=== PATIENT | female | born 1940 | race Caucasian/White ===

== ENCOUNTER → 2017-03-26 | Outpatient (CLI) | payer OTHER, BC ==
[~2017-03-26] MED LIST: ACETYLCYSTEINE 10% INH; ASCA500 PO; BIOTPOW17; BROVANA INH; CALC500C3 PO; CARB200T PO; CHOND PO; CICL0.7718 TOP; CLR10 PO; GFNSR600 PO; GLUCOSAMIN PO; MULT-506 PO; OMEG10007 PO; PRLSR20 PO; Q-VAR INH; SIMV20TA2 PO; SPIR25TA PO; TIOTCAP INH; [UNRECOGNIZED DRUG - OTHER] TD
--- NOTE | 2017-03-26 11:11 | DIAGNOSTIC IMAGING REPORT ---
CHEST 2 VIEWS ROUTINE CLINICAL HISTORY: J44.9 COPD COMPARISON STUDY: 05/04/2013 FINDINGS: The cardiac and mediastinal contours remain stable. Left hemidiaphragm is obscured suggesting left lower lobe airspace consolidation. Subtle retrocardiac air bronchograms are suspected. There is blunting of both lateral costophrenic angles. Postsurgical changes involve both shoulders.[ IMPRESSION: Left lower lobe airspace opacification. In the proper clinical setting this could indicate a pneumonia. Clinical and radiographic follow-up is recommended. Electronically signed by: Marquis Byrne M.D. 03/26/2017 11:09 AM Dictated Date/Time: 03/26/2017 11:08 AM
== END | disposition home or self-care (01) ==
LOC: C.RAD1850 10:47
PROVIDERS: ATTEND Physician Assistant Medical
DX: J44.9 Chronic obstructive pulmonary disease, unspecified (principal)

== ENCOUNTER → 2017-04-04 | Outpatient (CLI) | payer OTHER, BC | END | disposition home or self-care (01) | LOC: C.LABSPEC 17:53 | PROVIDERS: ATTEND Physician Assistant Medical | DX: J47.9 Bronchiectasis, uncomplicated (principal); J18.9 Pneumonia, unspecified organism ==

== ENCOUNTER → 2017-04-04 | Outpatient (CLI) | payer OTHER, BC ==
--- NOTE | 2017-04-04 15:39 | DIAGNOSTIC IMAGING REPORT ---
CHEST 2 VIEWS ROUTINE CLINICAL HISTORY: J18.9 [id number] COMPARISON STUDY: 03/26/2017 FINDINGS: The cardiac and mediastinal contours remain stable. The left hemidiaphragm remains obscured suggesting a left lower lobe airspace opacity. There are linear opacities the right lung base, likely representing subsegmental atelectatic change.[ There is a thoracic scoliosis. Postsurgical changes involve both shoulders. IMPRESSION: 1. Persistent left basal airspace opacities possibly representing a pneumonia 2. Linear opacities in the right lung base, likely representing subsegmental atelectasis Electronically signed by: Marquis Byrne M.D. 04/04/2017 3:37 PM Dictated Date/Time: 04/04/2017 3:36 PM
== END | disposition home or self-care (01) ==
LOC: C.RAD1850 15:25
PROVIDERS: ATTEND Physician Assistant Medical
DX: J18.9 Pneumonia, unspecified organism (principal); R91.8 Other nonspecific abnormal finding of lung field; J47.9 Bronchiectasis, uncomplicated

== ENCOUNTER → 2017-07-18 | Day surgery (SDC) | payer OTHER, BC ==
[2017-07-18] VITALS (8 sets, daily range): BP systolic 103–137; BP diastolic 42–86; PULSE 52–68; TEMP 36.3–36.9; O2SAT 92–96; Ht 162.6 cm; Wt 66.0 kg
[~2017-07-18] VITALS: Ht 162.6 cm; Wt 66.0 kg
[~2017-07-18] MED LIST changes: +ACET20SO4 INH; +AMOX500C3 PO; +ATRINS NEB; +BIOT1TAB5 PO; +ENOX80IN SQ; +FENTANYL CITRATE INJ 50 MCG/1 ML 2 ML VIAL IV ONE; +FLEC50TA20 PO; +KEPPRA PO; +LEVE250T PO; +LEVO1TAB33 PO; +LIDOCAINE 4% INH SOLN 4 ML BTL TOP ONE; +LIDOCAINE HCL 2% LOCAL 50ML VIAL INSTIL ONE; +LIDOCAINE VISCOUS 2% 100ML TOP ONE; +METO25TA3 PO; +MIDAZOLAM HCL 5 MG/ML 1 ML VIAL IV ONE; +MONT1TAB5 PO; +NYSTATIN PO; +OXGN; +OXYBUTYNIN PO; +PARO1TAB27 PO; +QVRINH80 INH; +WARF-284 PO; +WARF5TAB7 PO; +cough medicine PO
--- NOTE | 2017-07-18 09:43 | History and Physical ---
History & Physical Date of Service Jul 18, 2017. History & Physical 77-year-old female patient of provider Serjio Tripp with refractory productive cough. Here for bronchoscopic evaluation and bronchial lavage. Patient has been refractory to current treatment with antibiotics as well as inhalers. Patient is to undergo conscious sedation with bronchial lavage/bronchoscopy today for further evaluation of her refractory cough. Review of Systems Constitutional: as noted in HPI. Eyes: negative. ENT: negative. Cardiovascular: as noted in HPI. Respiratory: as noted in HPI. Gastrointestinal: as noted in HPI. Genitourinary: negative. Musculoskeletal: negative. Integumentary: negative. Neurological: negative. Psychiatric: negative. Endocrine: negative. Hematologic/Lymphatic: negative. Active Problems 1. Allergic rhinitis 2. Arthritis 3. Atrial fibrillation 4. Bronchiectasis 5. Chronic interstitial cystitis 6. Depression with anxiety 7. Dyslipidemia 8. Eczema 9. Esophageal reflux 10. Hypercholesterolemia 11. Hypoxia 12. Incomplete emptying of bladder 13. Osteoarthritis of hip 14. Pneumonia (Pseudomonas aeruginosa-gentamicin resistant-11/29/08) 15. Seizure disorder (G40.909) 16. Shortness of breath on exertion (R06.02) 17. Urinary frequency (R35.0) 18. Urinary incontinence (R32) 19. Chronic obstructive pulmonary disease (496) (J44.9) Past Medical History 1. History of Adverse reaction to anesthetic agent (T41.45XA) 2. History of Gastric ulcer (K25.9) 3. History of acute bronchitis (Z87.09) 4. History of candidiasis of mouth (Z86.19) 5. History of urinary tract infection Surgical History 1. History of Bladder Surgery 2. History of Bladder Surgery 3. History of Bunion Correct W/ Metatarsal Osteotomy Green-Watermann Proc 4. History of Hysterectomy 5. History of Lung Lobectomy 6. History of Lung Lobectomy 7. History of Neuroplasty Decompression Median Nerve At Carpal Tunnel 8. History of Rectal Surgery 9. History of Shoulder Arthroplasty Total Shoulder Replacement 10. History of Sinus Surgery 11. History of Tonsillectomy With Adenoidectomy 12. History of Total Knee Arthroplasty Family History 1. Family history of Asthma 2. Family history of Breast Cancer 3. Family history of Colon Cancer 4. Family history of Heart Disease 5. Family history of Prostate Cancer 6. Family history of Tuberculosis Social History Being A Social Drinker Marital History - Currently Never smoker Retired From Work Current Meds 1. Montelukast Sodium 10 MG Oral Tablet; TAKE 1 TABLET AT BEDTIME 2. Flecainide Acetate 50 MG Oral Tablet; Take one (1) tablet(s) by mouth every 12 hours 3. Warfarin Sodium 5 MG Oral Tablet; TAKE DIRECTED 4. Ipratropium [place] 0.02 % Inhalation Solution; INHALE 1 VIAL 4 times daily 5. LevoFLOXacin 500 MG Oral Tablet; TAKE 1 TABLET DAILY DIRECTED 7. Qvar 80 MCG/ACT Inhalation Aerosol Solution; INHALE 2 PUFFS Twice daily 8. Oxybutynin Chloride ER 5 MG Oral Tablet Extended Release 24 Hour 9. Acetylcysteine 20 % Inhalation Solution; INHALE 2 ML 4 times daily 10. PARoxetine HCl - 20 MG Oral Tablet; TAKE 1 TABLET DAILY DIRECTED 11. Omeprazole 20 MG Oral Capsule Delayed Release; TAKE 1 CAPSULE DAILY 12. Benzonatate 100 MG Oral Capsule; TAKE 1 CAPSULE 3 TIMES DAILY 13. Nystatin [id number] UNIT/ML Mouth/Throat Suspension; SWISH AND SWALLOW 14. Keppra 1000 MG Oral Tablet; TAKE 1.5 TABLET daily 15. Oxybutynin Chloride ER 10 MG Oral Tablet Extended Release 24 Hour; TAKE 1 TABLET DAILY 16. Amoxicillin 500 MG Oral Capsule; TAKE 4 CAPSULES 1 HOUR PRIOR TO DENTAL 17. Claritin 10 MG Oral Tablet; TAKE 1 TABLET DAILY 18. Metoprolol Tartrate 25 MG Oral Tablet; TAKE 1/4 TABLET IN THE MORNING AND 1/ 2 19. Simvastatin 20 MG Oral Tablet; TAKE 1 TABLET DAILY; 20. Warfarin Sodium 7.5 MG Oral Tablet; Allergies 1. Albuterol AERS 2. Erythromycin Derivatives 3. Keflex TABS 4. Macrobid CAPS 5. Sulfa Drugs Immunizations Influenza --- Series1: 16-Apr-2014 PPSV --- Series1: 2005 Vital Signs Weight: 155 lb 2 oz BMI Calculated: 26.63 BSA Calculated: 1.76 Blood Pressure: 120 / 62 Respiration: 16 Temperature: 98.2 F Heart Rate: 75 O2 Saturation: 92, RA Physical Exam Constitutional General appearance: No acute distress, well appearing and well nourished. Thin elderly female in NAD. No respiratory distress. She is alert and oriented X 3. Mood and affect are good. She is able to complete sentences without difficulty. Eyes Conjunctiva and lids: No swelling, erythema or discharge. Pupils and irises: Equal, round and reactive to light. Ears, Nose, Mouth, and Throat External inspection of ears and nose: Normal. Oropharynx: Normal with no erythema, edema, exudate or lesions. Pulmonary Respiratory effort: No increased work of breathing or signs of respiratory distress. Auscultation of lungs: Abnormal. She has diminished breath sounds bilaterally. She does have somme coarse rhonchi in the lower lung areas bilaterally. Cardiovascular Palpation of heart: Normal PMI, no thrills. Auscultation of heart: Normal rate and rhythm, normal S1 and S2, without murmurs. Examination of extremities for edema and/or varicosities: Normal. Abdomen Abdomen: Non-tender, no masses. Liver and spleen: No hepatomegaly or splenomegaly. Lymphatic Palpation of lymph nodes in neck: No lymphadenopathy. Musculoskeletal Gait and station: Normal. Digits and nails: Normal without clubbing or cyanosis. Inspection/palpation of joints, bones, and muscles: Normal. Skin Skin and subcutaneous tissue: Normal without rashes or lesions. Neurologic Cranial nerves: Cranial nerves 2-12 intact. Reflexes: 2+ and symmetric. Sensation: No sensory loss. Psychiatric Orientation to person, place, and time: Normal. Mood and affect: Normal.
--- NOTE | 2017-07-18 10:12 | History & Physical Bridge Note ---
H&P Re-Evaluation Bridge Note: I have examined the patient, reviewed the History & Physical and in the interval since the performance of the History & Physical I have noted the following changes of clinical significance: No changes noted
--- NOTE | 2017-07-18 10:13 | Pre Sedation Assessment ---
Pre Sedation Assessment General Date of Sedation: Jul 18, 2017. Vital Signs Past 12 Hours Date Time Temp Pulse Resp B/P (MAP) Pulse Ox O2 Delivery O2 Flow Rate FiO2 07/18/17 09:44 36.3 55 18 137/63 (87) 93 Room Air Review Cardiovascular: regular rate, rhythm, no edema, no gallop, no JVD, no murmur, normal peripheral pulses Lungs: chest non-tender, no respiratory distress, no accessory muscle use, + rhonchi (RUL) Pre-Sedation Airway Assessment Smoking Status: Never Smoker Hx of Sleep Apnea: No Short Thick Neck: No Thyro-mental Distance: < or =3 Finger Breadths Oral Cavity: Dentures Mallampati Classification: Class I ASA Classification: Class III NPO Status Date of Last Intake of Fluids: Jul 18, 2017 Time of Last Intake of Fluids: 0001 Date of Last Intake of Solids: Jul 17, 2017 Time of Last Intake of Solids: 1999 Procedure Planning Contraindications for Sedation: None Current Medications Reviewed: Yes Notes The planned sedation has been discussed with the patient. Informed Consent was obtained. I have identified the patient, determined the appropriateness of sedation and have assessed the patient immediately prior to the procedure. All medicine(s) and interventions are by my order.
--- NOTE | 2017-07-18 10:59 | Bronchoscopy Procedure Note ---
Bronchoscopy Procedure Note Procedure: Bronchoscopy, conscious sedation, bronchial lavage lingula and right middle lobe Consent: Obtained through the patient placed into the chart Pre-procedural diagnosis: Chronic bronchiectasis with acute flare Post-procedural diagnosis: Chronic bronchiectasis with acute flare Start time: 1030 End time: 1049 Total time: 19minutes Analgesia: 2% liquid lidocaine: Via nebulizer 4% gel lidocaine: Via right naris 2% liquid lidocaine: Via bronchoscopy Sedation: Versed IV: 2mg Fentanyl IV: 50g Procedure: The Olympus video bronchoscope was used for this procedure and passed down through the oropharynx and retroflexed off the soft palate Right naris/left naris: Bilateral mild inflammation/erythema posterior naris/posterior oropharynx: Anatomically within normal limits, mild cobblestoning and erythema Glottis: Anatomically within normal limits, diffuse mucous secretions especially on the posterior commissures Vocal cords: Proper abduction and abduction, anatomically within normal limits Subglottis/trachea/Ibrahima: Anatomically within normal limits, mild mucous secretions Right bronchial tree: Right mainstem bronchus: Anatomically within normal limits Right upper lobe: Anatomically within normal limits Bronchus intermedius: Anatomically within normal limits Right middle lobe: Notable external compression along the anterior medial aspect, diffuse mucous secretions Right lower lobe: Anatomically within normal limits, diffuse mucous secretions Findings: Diffuse mucous secretions with notable abnormality at the takeoff to the right middle lobe Left bronchial tree: Left mainstem bronchus: Anatomically within normal limits Left upper lobe: Anatomically within normal limits Lingula: Notably splayed tertiary ibrahima with early takeoff to the lingula, and notable deep posterior inferior entry point to the lingula and diffuse mucous plugs Left lower lobe: Externally compress most likely consistent with previous resection unable to view resection line Findings: Notable compression most likely secondary to resection of left lower lobe along with early takeoff and posterior inferior entrance into the lingula, diffuse mucus plugging also appreciated throughout the left upper lobe and lingula Bronchial alveolar lavage: Performed at the right middle lobe as well as lingula EBL: None Complications: None Follow-up: ASU
--- NOTE | 2017-07-18 11:02 | Post Sedation Assessment ---
Post Sedation Assessment General Date of Sedation Jul 18, 2017. Vital Signs: Vital Signs Past 12 Hours Date Time Temp Pulse Resp B/P (MAP) Pulse Ox O2 Delivery O2 Flow Rate FiO2 07/18/17 10:40 60 18 132/66 100 Mask 6 07/18/17 10:35 60 18 144/61 100 Mask 6 07/18/17 10:30 52 18 147/57 100 Room Air 07/18/17 10:25 52 18 149/60 100 Room Air 07/18/17 10:20 52 18 142/53 100 Room Air 07/18/17 10:17 52 18 136/43 100 Room Air 07/18/17 09:44 36.3 55 18 137/63 (87) 93 Room Air Post Procedure Recovery Score Activity: (2) Moves 4 extremities * Respiration: (2) Deep breath/cough Circulation: (2) +/-20% PreAnes Value Consciousness: (1) Arouseable (by name) Oxygen Saturation: (2) > 92% On Room Air Discharge Sedation Level of Care: Phase I Post Sedation Plan On clinical assessment, the patient appears to have tolerated the sedation without complications. Patient is recovering as anticipated. Patient will continue to be monitored by nursing and may be discharged when sedation discharge criteria are met per below protocol. Upon Completions of procedure and additional 15 minutes continue every 5 minute vital signs and the P.A.R. score; then discharge to a Phase I or Fast Track to Phase II per the following guidelines: * Discharge Patient to appropriate Phase II area if PAR is 8 or greater or return to pre- procedure baseline. The post - procedure orders will be as directed. * If PAR score is less than 8 or not return to pre-procedure baseline then patient will follow Phase I monitoring till PAR is reached for Phase II. The Phase I may be done in procedure room or may call to secure a Phase I area. * If naloxone or flumazenil are used for reversal, hold in Phase I for an additional 60 -120 minutes before discharge to Phase II. Please call the Sedation Physician to re-evaluate and complete post-note for discharge to Phase II area. Do NOT discharge from procedure sedation or Phase 1 until post- sedation evaluation note is complete by procedure /sedation MD Sedation Discharge Instructions to be given to the patient at discharge to home.
--- NOTE | 2017-07-18 11:04 | Discharge Instructions ---
Discharge Instructions Date of Service Jul 18, 2017. Admission Reason for Admission: Copd, Bronchiectasis, Shortness Of Breath Discharge Discharge Diagnosis / Problem: chronic bronchiectasis with acute flare Discharge Goals Goal(s): Improve function, Diagnostic testing Activity Recommendations Activity Limitations: resume your previous activity . Instructions / Follow-Up Instructions / Follow-Up Follow-up with provider Serjio Tripp through the [facility] pulmonary division Current Hospital Diet Patient's current hospital diet: Discharge Diet Recommended Diet: Regular Diet Procedures Procedures Performed: Bronchoscopy with conscious sedation a bronchial lavage of the right middle lobe and lingula Pending Studies Studies pending at discharge: no Medical Emergencies . Who to Call and When: Medical Emergencies: If at any time you feel your situation is an emergency, please call 911 immediately. . Non-Emergent Contact Non-Emergency issues call your: Berry Planter . . "Provider Documentation" section prepared by Dirk Aviles. . VTE Core Measure Inpt VTE Proph given/why not?: Warfarin (Coumadin)
== END | disposition home or self-care (01) ==
LOC: C.ACU 08:43
PROVIDERS: ATTEND Internal Medicine Pulmonary Disease
DX: J47.1 Bronchiectasis with (acute) exacerbation (principal); J44.9 Chronic obstructive pulmonary disease, unspecified; J30.9 Allergic rhinitis, unspecified; M19.90 Unspecified osteoarthritis, unspecified site; I48.91 Unspecified atrial fibrillation; N30.10 Interstitial cystitis (chronic) without hematuria; E78.5 Hyperlipidemia, unspecified; G40.909 Epilepsy, unspecified, not intractable, without status epilepticus; K21.9 Gastro-esophageal reflux disease without esophagitis; E78.00 Pure hypercholesterolemia, unspecified; R33.9 Retention of urine, unspecified; M16.10 Unilateral primary osteoarthritis, unspecified hip; Z87.01 Personal history of pneumonia (recurrent); Z87.440 Personal history of urinary (tract) infections; Z96.649 Presence of unspecified artificial hip joint; Z96.659 Presence of unspecified artificial knee joint; Z79.01 Long term (current) use of anticoagulants; Z80.3 Family history of malignant neoplasm of breast; Z80.0 Family history of malignant neoplasm of digestive organs; Z82.49 Family history of ischemic heart disease and other diseases of the circulatory system; Z80.42 Family history of malignant neoplasm of prostate

== ENCOUNTER 2017-08-12 12:33 | Day surgery (SDC) | payer OTHER, BC ==
[~2017-08-12] VITALS: Ht 162.6 cm; Wt 68.4 kg
[~2017-08-12 12:33] MED LIST changes: -ACETYLCYSTEINE 10% INH; -ASCA500 PO; -BIOTPOW17; -BROVANA INH; -CARB200T PO; +CEFEPIME IV 1,000 MG in DEXTROSE 5% 100ML IV SCH; +CEFEPIME IV 1,000 MG in SYRINGE 0 ML IV SCH; -CHOND PO; -FENTANYL CITRATE INJ 50 MCG/1 ML 2 ML VIAL IV ONE; -GLUCOSAMIN PO; -LEVE250T PO; -LIDOCAINE 4% INH SOLN 4 ML BTL TOP ONE; -LIDOCAINE HCL 2% LOCAL 50ML VIAL INSTIL ONE; -LIDOCAINE VISCOUS 2% 100ML TOP ONE; -METO25TA3 PO; +METO25TA4 PO; -MIDAZOLAM HCL 5 MG/ML 1 ML VIAL IV ONE; -OMEG10007 PO; -Q-VAR INH; -SPIR25TA PO; -TIOTCAP INH; -[UNRECOGNIZED DRUG - OTHER] TD
[2017-08-12 13:05] VITALS: BP 133/77; PULSE 72; TEMP 36.9; O2SAT 90; Ht 162.6 cm; Wt 68.4 kg
--- NOTE | 2017-08-12 14:34 | DIAGNOSTIC IMAGING REPORT ---
SINGLE VIEW CHEST CLINICAL HISTORY: PICC placement. FINDINGS: An AP, portable, upright chest radiograph is compared to study dated 04/04/2017. The examination is degraded by portable technique and patient rotation. A left PICC line has been placed. The tip of the catheter projects over the cavoatrial junction The heart is enlarged and there is atherosclerotic calcification of the thoracic aorta. The pulmonary vasculature is noncongested. Bibasilar consolidation is identified. No large pleural effusion is seen. No pneumothorax is identified. The skeletal structures are osteopenic. Degenerative change and scoliosis are noted in the thoracic spine. Bilateral shoulder arthroplasties are in place. IMPRESSION: 1. A left PICC line has been placed. The tip of the catheter projects over the cavoatrial junction. 2. Cardiomegaly. 3. There is bibasilar airspace consolidation. Correlate clinically for evidence of pneumonia/aspiration pneumonitis. Electronically signed by: Jerry Neff M.D. 08/12/2017 2:33 PM Dictated Date/Time: 08/12/2017 2:31 PM
[2017-08-12 15:29] VITALS: BP 125/58; PULSE 90; TEMP 36.7; O2SAT 90
== END 2017-09-12 10:16 | disposition home or self-care (01) ==
LOC: C.MTU 12:33
PROVIDERS: ATTEND Internal Medicine Infectious Disease
DX: J18.9 Pneumonia, unspecified organism (principal)

== ENCOUNTER 2022-10-29 10:13 | Inpatient (IN) ==
[2022-10-29] MEDS ORDERED: MAGNESIUM HYDROXIDE SUSP 30 ML UDC PO PRN (10:40)
[2022-10-29] MEDS ORDERED: POLYETHYLENE (MIRALAX) 17 GM PACK PO PRN (10:40)
[2022-10-29] MEDS ORDERED: ALUMINUM/MAGNESIUM SUSP 30 ML UDC PO PRN (10:40)
[2022-10-29] MEDS ORDERED: METHOCARBAMOL 500 MG TABLET PO PRN (10:50)
--- NOTE | 2022-10-29 11:16 | Pulmonary Consultation ---
Date of Consultation October 29, 2022 Assessment & Plan (1) Pseudomonal pneumonia: Attending: Dr. Cortes Impression: 82-year-old female with history of bronchiectasis and resistant Pseudomonas aeruginosa pneumonia, chronic respiratory failure on 2 L/min via nasal cannula, COPD, atrial flutter, chronic anticoagulation with apixaban, hyperlipidemia, seizure history with no seizures for several years, hypertension, heart failure, vitamin D deficiency. * Patient was resistant Pseudomonas aeruginosa who failed outpatient therapy * Pneumonias over the last several years treated with levofloxacin and prednisone. Sensitivities in 2018 via bronchoscopy show resistance to mariam quinolones. Patient has failed outpatient therapy recently with ciprofloxacin. There are no other oral antibiotics meet profile for treatment on antibiogram and sensitivity profile. Consequently, patient will be admitted for IV therapy. Antibiogram reviewed. IV cefepime 2 g every 8 hours shows 96% efficacy. * ID consult once sputum culture and labs are back * Most likely patient will need PICC line but will reevaluate once treatment is initiated and labs are back (2) Atrial fibrillation: * Patient is very well controlled on flecainide, metoprolol. She has been on these medications for several years. * Continue apixaban for anticoagulation * Pain EKG upon arrival baseline (3) Bronchiectasis: * Confirmed by CT imaging in the past * Previous bronchoscopy with Pseudomonas aeruginosa * Continue with hypertonic saline, acetylcysteine, ipratropium nebulizer treatments. We will also continue with flutter valve and pneumo vest (4) On home oxygen therapy: * 2 L/min via nasal cannula to maintain supplemental oxygen at 88 to 92% (5) Chronic obstructive pulmonary disease: * Continue Qvar twice daily * Continue with nebulized treatments as needed * It should be noted the patient has paradoxical reaction with albuterol. Consequently, this will be avoided * Lifetime non-smoker * Patient with history of bronchiectasis as above (6) Epilepsy: * No seizures for several years and no adjustments to Keppra for several years Plan DVT prophylaxis: Continue apixaban for chronic anticoagulant therapy. We will also do knee-high teds and SCDs while inpatient Patient is being admitted for failure of outpatient therapy for Pseudomonas aeruginosa pneumonia. Case management has been consulted to assist with discharge planning as it is anticipated that patient may need long-term IV antibiotics. Will await infectious disease consult for disposition Patient's daughter is Janelle Colbert and is very active in her mother's care. History of Present Illness Reason for Consultation: Resistant Pseudomonas pneumonia Requesting Physician: Dr. Garcia Attending Physician: Jake Garcia MD History of Present Illness Attending: Dr. Cortes This is an 82-year-old female that follows in our [place] [facility] clinic for bronchiectasis chronic respiratory failure on supplemental oxygen, COPD. She has a past medical history atrial fibrillation on flecainide, metoprolol, chronic anticoagulation with apixaban, vitamin D deficiency, hyperlipidemia, seizure history, heart failure Patient has history of resistant Pseudomonas aeruginosa diagnosed by bronchoscopy and sputum sample in the past. Bronchoscopy in 2018 revealed resistance to oral antibiotics. However, she is also continue to receive levofloxacin and prednisone since that time for difficult with clearance of sputum and pneumonia several times. Patient was seen in the outpatient office and had fever and increased sputum in August. Sputum sample was requested but patient did not get sputum collected until 4 weeks later. At that time Pseudomonas aeruginosa grew but they were unable to do resistance studies. Patient was treated with ciprofloxacin which had the least amount of resistance for oral medications and had no improvement in symptoms. In fact sputum is increased and is now dark green in color. Patient currently denies any fever. She is short of breath and is using oxygen at 2 L/min via nasal cannula. Patient has agreed to hospital admission for IV antibiotics as well as consultation with infectious disease for treatment going forward. Case was discussed with Dr. Cross for opinion on bronchoscopy. Due to the fact that we have previous cultures that are resistant to antibiotics and patient failed outpatient therapy with oral antibiotics, we felt it best to direct admit the patient rather than subject the patient to invasive procedures such as another bronchoscopy. Regarding the patient's bronchiectasis, she has been on hypertonic saline nebulizer treatments, flutter valve, pneumo vest, acetylcysteine with little to no effect. Patient is on Qvar (beclomethasone) inhalation twice a day as well as ipratropium bromide nebulizer treatments. Allergies Allergy/AdvReac Type Severity Reaction Status Date / Time albuterol Allergy Intermediate SWELLING Verified 08/29/22 09:24 nitrofurantoin Allergy Intermediate Hives Verified 08/29/22 09:24 [From Macrodantin] Sulfa (Sulfonamide Allergy Intermediate SWELLS Verified 08/29/22 09:24 Antibiotics) Cephalosporins AdvReac Intermediate ACUTE Verified 08/29/22 09:24 GASTRITIS erythromycin base AdvReac Intermediate ACUTE Verified 08/29/22 09:24 GASTRITIS (ILOSONE) Home Medications Medication Instructions Recorded Confirmed Type calcium carbonate 500 mg calcium 1,000 mg PO BID ##0 12/01/08 10/23/22 History (1,250 mg) chewable tablet flecainide 50 mg tablet 50 mg PO Q12H #0 tabs 07/18/17 10/23/22 History paroxetine HCl 20 mg tablet 20 mg PO DAILY #0 tabs 07/18/17 10/23/22 History cholecalciferol (vitamin D3) 125 5,000 unit PO DAILY 05/07/18 10/23/22 History mcg (5,000 unit) tablet (Vitamin D3) clotrimazole-betamethasone 1 1 appln topical BID PRN 05/05/19 10/23/22 History %-0.05 % topical cream lidocaine-prilocaine 2.5 %-2.5 % topical 05/05/19 10/23/22 History topical cream simvastatin 20 mg tablet 20 mg PO QPM 05/05/19 10/23/22 History metoprolol tartrate 25 mg tablet 25 mg PO DAILY 08/07/19 10/23/22 History guaifenesin 600 mg tablet, 600 mg PO BID PRN cough #60 tabs 05/02/20 10/23/22 Rx extended release 12 hr (Mucinex) scsqlqzg-[id number]-ozzsb acid 33 1 tab PO DAILY 08/02/20 10/23/22 History mcg-biotin 5,000 mcg-lutein 250 mcg tablet (Jose Angel Matrix 5000 Complete) apixaban 5 mg tablet (Eliquis) 5 mg PO BID 01/18/21 10/23/22 History ipratropium bromide 0.02 % See Rx Instructions .Route 10/23/21 10/23/22 Rx solution for inhalation .COMPLEX #900 mL sodium chloride 7 % for 4 ml inhalation BID 90 days #180 02/08/22 10/23/22 Rx nebulization vials Flutter Valve #1 ea 02/27/22 10/23/22 Rx methocarbamol 500 mg tablet 500 mg PO QPM PRN muscle spasm #90 04/13/22 10/23/22 Rx tabs beclomethasone dipropionate 80 1 inh inhalation BID PRN 04/19/22 10/23/22 Rx mcg/actuation HFA breath activated Bronchiectasis #3 Inhalers aerosol (Qvar RediHaler) acetylcysteine 200 mg/mL (20 %) See Rx Instructions .Route 06/21/22 10/23/22 Rx solution .COMPLEX #1,500 mL furosemide 40 mg tablet 40 mg PO DAILY 08/29/22 10/23/22 History levetiracetam 1,000 mg tablet 1,000 mg PO .COMPLEX 08/29/22 10/23/22 History (Ryan) Patient History Medical History (Updated 09/04/22 @ 13:46 by Jerry Simental PA-C) Atrial fibrillation Bronchiectasis Chronic obstructive pulmonary disease Epilepsy GERD (gastroesophageal reflux disease) Hyperlipidemia Interstitial cystitis On home oxygen therapy 2L/min HS Osteoarthritis Pseudomonal pneumonia Seizure Surgical History History of adenoidectomy History of bunionectomy bilateral History of carpal tunnel release of both wrists History of colonoscopy History of cystoscopy History of endoscopic sinus surgery History of lobectomy of lung LLL History of tonsillectomy History of total hip arthroplasty bilateral History of total shoulder replacement bilateral Hx of hysterectomy Social History Smoking Status: Never smoker Hx Alcohol Use: No Hx Substance Use: No Preferred Language: Namibian Communication Ability: Effective Dietary Services Manager Required: No Beliefs That Will Affect Care: None Current Living Situation: Spouse Feels Safe at Home: Yes Assistive Devices: Denture - Upper, Glasses, Nebulizer and Oxygen - at Night Review of Systems Review of Systems: A total of 10 systems was reviewed and is negative other than as listed in the HPI Physical Exam Physical Exam: GENERAL : No acute distress EYES: No icterus, gaze conjugate NOSE: No evidence of epistaxis MOUTH: No lesions or candidiasis. Mucosa is moist NECK: Supple. No appreciation of stridor LUNGS: Coarse crackles at the bases as well as rhonchi throughout. No appreciation of bronchospasm HEART: Regular, rate controlled ABDOMEN: Soft, NT, ND, BS Present EXTREMITIES: No LE edema, pedal pulses intact NEURO: A&OX3 PG Care Time/CCT Total # of Minutes Spent Total Time Spent with Patient: Total time spent is greater than 50% in coordination of care (as documented) at patient's floor/unit and/or counseling patient: 60 minutes Coding Level of Care Code 89054 INT INP/OBS CARE 3/75MIN Diagnoses Pseudomonal pneumonia J15.1 Atrial fibrillation I48.91 Bronchiectasis J47.9 On home oxygen therapy Z99.81 Chronic obstructive pulmonary disease J44.9 Epilepsy G40.909 Time Spent (min) 60
[2022-10-29] MEDS ORDERED: FLUTICASONE FUROATE 100MCG 14 PUFFS/INHALER INH PRN (11:20)
[2022-10-29] MEDS ORDERED: CEFEPIME 2,000 MG in SYRINGE 0 ML IV STA (11:29)
[2022-10-29 12:14] LABS: Basophils # (auto) 0.06 K/uL (0-0.2); Basophils % (auto) 0.6 %; Eosinophils # (auto) 0.15 K/uL (0-0.50); Eosinophils % (auto) 1.5 %; Hematocrit (blood only) 36.1 % (37.0-47.0); Hemoglobin 11.6 g/dl (12.0-16.0); Immature Granulocytes # (auto) 0.05 K/uL (0.01-0.20); Immature Granulocytes % (auto) 0.5 %; Lymphocytes # (auto) 1.52 K/uL (1.2-3.4); Lymphocytes % (auto) 15.2 %; Mean Corpuscular Hemoglobin 29.5 pg (25.0-34.0); Mean Corpuscular Hgb Conc 32.1 g/dL (32.0-36.0); Mean Corpuscular Volume 91.9 fL (80.0-100.0); Mean Platelet Volume 8.5 fL (9.4-12.4); Monocytes # (auto) 0.76 K/uL (0.11-0.59); Monocytes % (auto) 7.6 %; Neutrophils # (auto) 7.47 K/uL (1.40-6.50); Neutrophils % (auto) 74.6 %; Platelet Count 432 K/uL (130-400); RDW Coefficient of Variation 13.1 % (11.5-14.5); RDW Standard Deviation 43.9 fL (36.4-46.3); Red Blood Count 3.93 M/uL (4.20-5.40); White Blood Count 10.01 K/ul (4.8-10.8)
[2022-10-29 12:28] LABS: Albumin Globulin Ratio 0.9 (0.9-2); Albumin Level 3.5 gm/dl (3.4-5.0); BUN Creatinine Ratio 18.2 (10-20); Bilirubin,Total 0.3 mg/dl (0.2-1.0); Calcium 9.5 mg/dl (8.6-10.3); Est GFR (African American) 82.2 ml/min; Est GFR (Non-African American) 70.9 ml/min; Globulin 3.9 gm/dl (2.5-4.0); Magnesium 1.9 mg/dl (1.7-2.4); Potassium 3.8 mmol/L (3.5-5.1); Total Protein 7.4 gm/dl (6.0-8.3)
[2022-10-29] MEDS ORDERED: ACETYLCYSTEINE 20% INHAL SOLN 4ML ***DISPENSED BY RESP. INH SCH (13:00)
--- NOTE | 2022-10-29 14:39 | History & Physical Report ---
Date of Service October 29, 2022 Assessment & Plan (1) Pseudomonal pneumonia: Plan: 82-year-old female admitted for pseudomonal pneumonia requiring IV antibiotics, history of Pseudomonas positive culture with fluoroquinolone resistance Pseudomonal pneumonia, bronchiectasis Prior CT confirmed bronchiectasis, prior positive culture for Pseudomonas No leukocytosis Renal functional with normal baseline, creatinine 0.77 on admission. eGFR 70/creatinine clearance 47 COVID-negative Continue cefepime every 8 hours Continue acetylcysteine, hypertonic saline Continue flutter valve, incentive spirometry Ipratropium nebs as needed Do not use albuterol nebulized due to allergy/paradoxic reaction Pulmonary consulted. No bronchoscopy anticipated at this time. (2) GERD (gastroesophageal reflux disease): Plan: Continue PPI (3) Atrial fibrillation: Plan: Well-controlled, sinus on admission Continue flecainide/metoprolol No evidence of RVR, patient denies recent episodes of RVR (4) Epilepsy: Plan: Stable, no history of breakthrough seizures in many years Continue Keppra 1 g daily home dosing (5) Chronic obstructive pulmonary disease: Plan: Continue Qvar Pulmonology following Nebulizers as noted Flutter valve, symptoms parameters as noted Do not hyper oxygenate due to COPD physiology, goal SPO2 89-94% (6) On home oxygen therapy: Plan: Continue oxygen as noted Plan DVT prophylaxis: Continue apixaban Diet: Heart healthy Disposition: Medical surgical CODE STATUS DNR/DNI Admission and Anticipated Discharge Date Admission Date: October 29, 2022 History of Present Illness Primary Care Provider: Qasim Mccauley History is seen at the bedside following direct admission. 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 She reports that for many months she has had a chronic productive cough which is really never improved and associated shortness of breath. She does not have chest pain, chest pressure associated with this. She does have a history of A-fib on anticoagulation, denies bleeding problems. She is in sinus on arrival, reports that flecainide and metoprolol do well for her and she has not had episodes of syncope. She was seen by pulmonology for outpatient follow-up and sputum was consistent with Pseudomonas, however sensitivity testing was not available at that time and patient continued to have symptoms despite ciprofloxacin treatment. She has had progressively increasing shortness of breath, cough, and dark green/yellow sputum production. Medical History: Reviewed Medications: Reviewed Surgical History: Reviewed Family history: Reviewed Allergies: Reviewed Social History: Reviewed Code Status:DNR/DNI Allergies Allergy/AdvReac Type Severity Reaction Status Date / Time albuterol Allergy Intermediate SWELLING Verified 08/29/22 09:24 nitrofurantoin Allergy Intermediate Hives Verified 08/29/22 09:24 [From Macrodantin] Sulfa (Sulfonamide Allergy Intermediate SWELLS Verified 08/29/22 09:24 Antibiotics) Cephalosporins AdvReac Intermediate ACUTE Verified 08/29/22 09:24 GASTRITIS erythromycin base AdvReac Intermediate ACUTE Verified 08/29/22 09:24 GASTRITIS (ILOSONE) Home Medications Medication Instructions Recorded Confirmed Type calcium carbonate 500 mg calcium 1,000 mg PO BID ##0 12/01/08 10/23/22 History (1,250 mg) chewable tablet flecainide 50 mg tablet 50 mg PO Q12H #0 tabs 07/18/17 10/23/22 History paroxetine HCl 20 mg tablet 20 mg PO DAILY #0 tabs 07/18/17 10/23/22 History cholecalciferol (vitamin D3) 125 5,000 unit PO DAILY 05/07/18 10/23/22 History mcg (5,000 unit) tablet (Vitamin D3) clotrimazole-betamethasone 1 1 appln topical BID PRN 05/05/19 10/23/22 History %-0.05 % topical cream lidocaine-prilocaine 2.5 %-2.5 % topical 05/05/19 10/23/22 History topical cream simvastatin 20 mg tablet 20 mg PO QPM 05/05/19 10/23/22 History metoprolol tartrate 25 mg tablet 25 mg PO DAILY 08/07/19 10/23/22 History guaifenesin 600 mg tablet, 600 mg PO BID PRN cough #60 tabs 05/02/20 10/23/22 Rx extended release 12 hr (Mucinex) efswujzo-iac-ivfmd acid 33 1 tab PO DAILY 08/02/20 10/23/22 History mcg-biotin 5,000 mcg-lutein 250 mcg tablet (Jose Angel Matrix 5000 Complete) apixaban 5 mg tablet (Eliquis) 5 mg PO BID 01/18/21 10/23/22 History ipratropium bromide 0.02 % See Rx Instructions .Route 10/23/21 10/23/22 Rx solution for inhalation .COMPLEX #900 mL sodium chloride 7 % for 4 ml inhalation BID 90 days #180 02/08/22 10/23/22 Rx nebulization vials Flutter Valve #1 ea 02/27/22 10/23/22 Rx methocarbamol 500 mg tablet 500 mg PO QPM PRN muscle spasm #90 04/13/22 10/23/22 Rx tabs beclomethasone dipropionate 80 1 inh inhalation BID PRN 04/19/22 10/23/22 Rx mcg/actuation HFA breath activated Bronchiectasis #3 Inhalers aerosol (Qvar RediHaler) acetylcysteine 200 mg/mL (20 %) See Rx Instructions .Route 06/21/22 10/23/22 Rx solution .COMPLEX #1,500 mL furosemide 40 mg tablet 40 mg PO DAILY 08/29/22 10/23/22 History levetiracetam 1,000 mg tablet 1,000 mg PO .COMPLEX 08/29/22 10/23/22 History (Ryan) Past Med/Surg History Medical History Atrial fibrillation Bronchiectasis Chronic obstructive pulmonary disease Epilepsy GERD (gastroesophageal reflux disease) Hyperlipidemia Interstitial cystitis On home oxygen therapy 2L/min HS Osteoarthritis Pseudomonal pneumonia Seizure Surgical History History of adenoidectomy History of bunionectomy bilateral History of carpal tunnel release of both wrists History of colonoscopy History of cystoscopy History of endoscopic sinus surgery History of lobectomy of lung LLL History of tonsillectomy History of total hip arthroplasty bilateral History of total shoulder replacement bilateral Hx of hysterectomy Social History Smoking Status: Never smoker Do You Dip or Chew Tobacco: No; Hx Alcohol Use: Yes Alcohol type: wine Hx Substance Use: No Preferred Language: Malay Communication Ability: Effective Zinc Plate Grainer Required: No Beliefs That Will Affect Care: None Current Living Situation: Spouse Other Information That Helps Us Care for You: No Feels Safe at Home: Yes Safety Concerns: Feels Safe At This Time Assistive Devices: Cane, Glasses and Oxygen - at Night Review of Systems Review of Systems: All systems reviewed & are unremarkable except as noted in HPI & below Physical Exam Physical Exam: General: A&Ox3. NAD. Cooperative. Answers questions appropriately, no acute distress HEENT: Atraumatic, normocephalic. Vision and hearing grossly intact. Pupils equal and reactive to light Pulm: Diffusely coarse in upper and lower lobes, patient actively expectorating dark yellow/green sputum at the bedside. Flutter valve and incentive spirometer nearby. Cardiac: RRR, -mrg. Radial pulses intact and symmetrical. Abdominal: Nontender, nondistended, soft. BS present. Extremities: Warm and dry, moves all extremities equally Results & Data Results & Data Vital Signs (Past 12 Hours) Vital Signs Temp Pulse Resp BP Pulse Ox O2 Del Method O2 Flow Rate 10/29/22 12:30 Nasal Cannula 2 10/29/22 12:15 97 Nasal Cannula 2 10/29/22 12:12 36.5 C 62 20 158/68 H 89 L Room Air Code Status & VTE Plan VTE Prophylaxis Plan VTE Prophylaxis will be ordered: Yes PG Care Time/CCT Total # of Minutes Spent Total Time Spent with Patient: Total time spent is greater than 50% in coordination of care (as documented) at patient's floor/unit and/or counseling patient: Coding Level of Care Code 79995 INT INP/OBS CARE 2MIN Diagnoses Pseudomonal pneumonia J15.1 GERD (gastroesophageal reflux disease) K21.9 Atrial fibrillation I48.91 Epilepsy G40.909 Chronic obstructive pulmonary disease J44.9 On home oxygen therapy Z99.81
--- NOTE | 2022-10-29 15:10 | XRay Report ---
XR chest 1V portable HISTORY: 82 years-old Female Pneumonia acute shortness of breath COMPARISON: Chest CT from outside institution 10/05/2022 TECHNIQUE: AP view of the chest FINDINGS: Cardiac silhouette is enlarged. Small pleural effusions. Left greater right bibasilar and left midlun g airspace opacities. Reticular nodular densities better seen on the prior study. Degenerative change s of the spine with sigmoidal scoliosis. Bilateral shoulder arthroplasties. IMPRESSION: 1. Cardiomegaly without overt pulmonary edema. 2. Left greater than right bibasilar and left midlung airspace opacities have progressively worsened from the comparison chest CT from 10/05/2022 suggestive of an infectious or inflammatory pneumonitis. ACT 112: Negative or not required by law. The above report was generated using voice recognition software. It may contain grammatical, syntax o r spelling errors. Electronically signed by: Ben Castro M.D. 10/29/2022 3:08 PM
[2022-10-29] MEDS: IPRATROPIUM BROMIDE NEB SOLN 0.02% 2.5 ML VIAL NEB PRN ×2 (15:23→20:47)
[2022-10-29] MEDS: ACETYLCYSTEINE 20% INHAL SOLN 4ML ***DISPENSED BY RESP. INH SCH ×2 (15:23→20:48)
--- NOTE | 2022-10-29 17:51 | Electrocardiogram Report ---
Test Reason : Blood Pressure : / mmHG Vent. Rate : 059 BPM Atrial Rate : 059 BPM P-R Int : 184 ms QRS Dur : 088 ms QT Int : 426 ms P-R-T Axes : 068 -25 -01 degrees QTc Int : 421 ms Sinus bradycardia with marked sinus arrhythmia and PVCs Moderate voltage criteria for LVH, may be normal variant Abnormal ECG When compared with ECG of 12-DEC-2006 14:42, Minimal criteria for Septal infarct are now Present T wave inversion now evident in Inferior leads Confirmed by Dakota Wan ([id number]) on 10/29/2022 5:50:46 PM Referred By: Jake Garcia Confirmed By:Hilario Wan
[2022-10-29] MEDS: guaiFENesin 600 MG TABCR PO PRN (17:54)
[2022-10-29] MEDS: SODIUM CHLOR 7% 4 ML NEB NEB SCH (20:48)
[2022-10-29] MEDS: CALCIUM 600MG + VIT D 400 IU TAB PO SCH (21:29)
[2022-10-29] MEDS: FLECAINIDE ACETATE 100 MG TABLET PO SCH (21:30)
[2022-10-29] MEDS: HEPARIN SOD 5,000 UNIT/0.5 ML VIAL SQ SCH (21:31)
[2022-10-29] MEDS: levETIRAcetam 500 MG TAB PO SCH (21:31)
[2022-10-29] MEDS: SIMVASTATIN 20 MG TAB PO SCH (21:32)
[2022-10-30] MEDS: CEFEPIME 2,000 MG in SYRINGE 0 ML IV SCH ×2 (00:53→12:03)
[2022-10-30] MEDS: IPRATROPIUM BROMIDE NEB SOLN 0.02% 2.5 ML VIAL NEB PRN ×4 (06:51→23:12)
[2022-10-30] MEDS: ACETYLCYSTEINE 20% INHAL SOLN 4ML ***DISPENSED BY RESP. INH SCH ×3 (06:52→15:08)
[2022-10-30] MEDS: SODIUM CHLOR 7% 4 ML NEB NEB SCH ×2 (06:55→20:10)
[2022-10-30] MEDS: METOPROLOL TARTRATE 25 MG TAB PO SCH (08:44)
[2022-10-30] MEDS: FLECAINIDE ACETATE 100 MG TABLET PO SCH ×2 (08:44→21:06)
[2022-10-30] MEDS: CHOLECALCIFEROL 5,000 UNITS 125 MCG TAB PO SCH (08:44)
[2022-10-30] MEDS: HEPARIN SOD 5,000 UNIT/0.5 ML VIAL SQ SCH ×2 (08:44→21:08)
[2022-10-30] MEDS: CALCIUM 600MG + VIT D 400 IU TAB PO SCH ×2 (08:45→21:08)
[2022-10-30] MEDS: MULTIVITAMIN TAB PO SCH (08:45)
[2022-10-30] MEDS: levETIRAcetam 500 MG TAB PO SCH ×2 (08:45→21:07)
[2022-10-30] MEDS: PARoxetine HCL 20 MG TAB PO SCH (08:45)
[2022-10-30] MEDS: FUROSEMIDE 40 MG TAB PO SCH (08:45)
--- NOTE | 2022-10-30 13:33 | Hospitalist Progress Note ---
Date of Service October 30, 2022 Assessment & Plan (1) Pseudomonal pneumonia: Plan: 82-year-old female admitted for pseudomonal pneumonia requiring IV antibiotics, history of Pseudomonas positive culture with fluoroquinolone resistance Pseudomonal pneumonia, bronchiectasis Prior CT confirmed bronchiectasis, prior positive culture for Pseudomonas No leukocytosis Renal functional with normal baseline, creatinine 0.77 on admission. eGFR 70/creatinine clearance 47 COVID-negative Continue cefepime every 8 hours Failed outpatient antibiotic (ciprofloxacin) therapy. Has a history of fluoroquinolone resistant Pseudomonas Continue acetylcysteine, hypertonic saline Continue flutter valve, incentive spirometry Ipratropium nebs as needed Do not use albuterol nebulized due to allergy/paradoxic reaction Pulmonary on board. No bronchoscopy anticipated at this time. (2) GERD (gastroesophageal reflux disease): Plan: Continue PPI (3) Atrial fibrillation: Plan: Well-controlled, sinus on admission Continue flecainide/metoprolol No evidence of RVR, patient denies recent episodes of RVR (4) Epilepsy: Plan: Stable, no history of breakthrough seizures in many years Continue Keppra 1 g daily home dosing (5) Chronic obstructive pulmonary disease: Plan: Continue Qvar Pulmonology following Nebulizers as noted Flutter valve, symptoms parameters as noted Do not hyper oxygenate due to COPD physiology, goal SPO2 89-94% (6) On home oxygen therapy: Plan: Continue oxygen as noted Plan DVT prophylaxis: Continue apixaban Diet: Heart healthy Disposition: Medical surgical CODE STATUS DNR/DNI Admission and Anticipated Discharge Date Admission Date: October 29, 2022 Subjective Patient feels well overall. Denies chest pain or shortness of breath. Review of Systems Review of Systems: All systems reviewed & are unremarkable except as noted in Subjective Physical Exam Physical Exam: General: Awake, conversant Heart: S1, S2/regular rate and rhythm, no murmur rubs or gallops Lungs: Bilateral crackles. Normal effort Abdomen: Soft/nontender/nondistended. No hepatosplenomegaly Extremities: No clubbing/cyanosis. No edema Behavior: Appropriate, cooperative Results & Data Results & Data Vital Signs (Past 12 Hours) Vital Signs Temp Pulse Resp BP BP Pulse Ox O2 Del Method 10/30/22 10:47 67 16 93 Room Air 10/30/22 07:20 Nasal Cannula 10/30/22 08:00 36.4 C L 79 20 126/76 97 Nasal Cannula 10/30/22 07:36 36.4 C L 77 18 142/79 H 98 Nasal Cannula 10/30/22 06:53 74 18 93 Room Air O2 Flow Rate 10/30/22 10:47 10/30/22 07:20 2 10/30/22 08:00 2 10/30/22 07:36 2 10/30/22 06:53 Diagnostic Findings Chest X-Ray 10/29/22 10:45 XR chest 1V portable HISTORY: 82 years-old Female Pneumonia acute shortness of breath COMPARISON: Chest CT from outside institution 10/05/2022 TECHNIQUE: AP view of the chest FINDINGS: Cardiac silhouette is enlarged. Small pleural effusions. Left greater right bibasilar and left midlung airspace opacities. Reticular nodular densities better seen on the prior study. Degenerative changes of the spine with sigmoidal scoliosis. Bilateral shoulder arthroplasties. IMPRESSION: 1. Cardiomegaly without overt pulmonary edema. 2. Left greater than right bibasilar and left midlung airspace opacities have progressively worsened from the comparison chest CT from 10/05/2022 suggestive of an infectious or inflammatory pneumonitis. ACT 112: Negative or not required by law. The above report was generated using voice recognition software. It may contain grammatical, syntax or spelling errors. Electronically signed by: Ben Castro M.D. 10/29/2022 3:08 PM PG Care Time/CCT Total # of Minutes Spent Total Time Spent with Patient: Total time spent is greater than 50% in coordination of care (as documented) at patient's floor/unit and/or counseling patient: Coding Level of Care Code 58611 SUB INP/OBS CARE 2/35MIN Diagnoses Pseudomonal pneumonia J15.1 GERD (gastroesophageal reflux disease) K21.9 Atrial fibrillation I48.91 Epilepsy G40.909 Chronic obstructive pulmonary disease J44.9 On home oxygen therapy Z99.81
[2022-10-30] MEDS: ACETAMINOPHEN 325 MG TAB PO PRN (13:41)
--- NOTE | 2022-10-30 16:27 | Pulmonology Progress Note ---
Date of Service October 30, 2022 Assessment & Plan (1) Acute exacerbation of bronchiectasis: Plan: See plan below (2) Musculoskeletal chest pain: Plan: Secondary to chronic cough Plan She has a history of pseudomonal colonization. Sputum cultures pending from this admission. Continue cefepime. Continue measures at airway clearance with flutter valve, Mucinex and hypertonic saline. Apparently intolerant of nebulized tobramycin in the past as an outpatient. May need to consider retrial at this hospital admission with premedication utilizing albuterol. We will apply heating pad to the soreness in her chest. Low threshold to repeat CT chest. Hold off bronchoscopy at this time unless clinical condition changes. Admission and Anticipated Discharge Date Admission Date: October 29, 2022 Subjective Patient seen examined. Continues to cough up significant amount of sputum. Complaining of left-sided pain from coughing. Denies any fevers, chills or night sweats. Review of Systems Review of Systems: All systems reviewed & are unremarkable except as noted in HPI & below Physical Exam Physical Exam: GENERAL : No acute distress EYES: No icterus, gaze conjugate NOSE: No evidence of epistaxis MOUTH: No lesions or candidiasis. Mucosa is moist NECK: Supple. No appreciation of stridor LUNGS: Coarse crackles at the bases as well as rhonchi throughout. No appreciation of bronchospasm HEART: Regular, rate controlled ABDOMEN: Soft, NT, ND, BS Present EXTREMITIES: No LE edema, pedal pulses intact NEURO: A&OX3 Results & Data Results & Data Vital Signs (Past 12 Hours) Vital Signs Temp Pulse Resp BP BP Pulse Ox O2 Del Method 10/30/22 15:24 36.5 C 69 20 117/71 98 Nasal Cannula 10/30/22 15:12 64 18 93 Room Air 10/30/22 10:47 67 16 93 Room Air 10/30/22 07:20 Nasal Cannula 10/30/22 08:00 36.4 C L 79 20 126/76 97 Nasal Cannula 10/30/22 07:36 36.4 C L 77 18 142/79 H 98 Nasal Cannula 10/30/22 06:53 74 18 93 Room Air O2 Flow Rate 10/30/22 15:24 2 10/30/22 15:12 10/30/22 10:47 10/30/22 07:20 2 10/30/22 08:00 2 10/30/22 07:36 2 04/18/23 06:53 PG Care Time/CCT Total # of Minutes Spent Total Time Spent with Patient: Total time spent is greater than 50% in coordination of care (as documented) at patient's floor/unit and/or counseling patient: Coding Level of Care Code 23952 SUB INP/OBS CARE 2/35MIN Diagnoses Acute exacerbation of bronchiectasis J47.1 Musculoskeletal chest pain R07.89
[2022-10-30] MEDS: SIMVASTATIN 20 MG TAB PO SCH (21:08)
[2022-10-31] MEDS: CEFEPIME 2,000 MG in SYRINGE 0 ML IV SCH ×3 (00:34→23:41)
[2022-10-31] MEDS: guaiFENesin 600 MG TABCR PO PRN ×3 (00:36→23:46)
[2022-10-31] MEDS: SODIUM CHLOR 7% 4 ML NEB NEB SCH ×2 (07:37→19:42)
[2022-10-31] MEDS: IPRATROPIUM BROMIDE NEB SOLN 0.02% 2.5 ML VIAL NEB PRN ×3 (07:37→22:40)
[2022-10-31 09:12] LABS: Creatinine Clr Calc Pharmacy 50.2 ml/min; Est GFR (African American) 89.1 ml/min; Est GFR (Non-African American) 76.9 ml/min
[2022-10-31] MEDS: FUROSEMIDE 40 MG TAB PO SCH (09:28)
[2022-10-31] MEDS: levETIRAcetam 500 MG TAB PO SCH ×2 (09:29→19:24)
[2022-10-31] MEDS: MULTIVITAMIN TAB PO SCH (09:29)
[2022-10-31] MEDS: CALCIUM 600MG + VIT D 400 IU TAB PO SCH ×2 (09:30→19:22)
[2022-10-31] MEDS: FLECAINIDE ACETATE 100 MG TABLET PO SCH ×2 (09:30→19:23)
[2022-10-31] MEDS: PARoxetine HCL 20 MG TAB PO SCH (09:31)
[2022-10-31] MEDS: CHOLECALCIFEROL 5,000 UNITS 125 MCG TAB PO SCH (09:31)
[2022-10-31] MEDS: METOPROLOL TARTRATE 25 MG TAB PO SCH (09:31)
[2022-10-31] MEDS: HEPARIN SOD 5,000 UNIT/0.5 ML VIAL SQ SCH ×2 (09:36→19:23)
[2022-10-31] MEDS ORDERED: ALBUT/IPRATROP 3MG/0.5MG NEB 3 ML VIAL NEB STA ×2 (10:41→13:34)
--- NOTE | 2022-10-31 10:45 | Pulmonology Progress Note ---
Date of Service October 31, 2022 Assessment & Plan (1) Acute exacerbation of bronchiectasis: (2) Musculoskeletal chest pain: (3) Pseudomonal pneumonia: (4) GERD (gastroesophageal reflux disease): (5) Atrial fibrillation: (6) On home oxygen therapy: (7) Chronic obstructive pulmonary disease: (8) Epilepsy: Plan Attending: Dr. Cortes Impression: 82-year-old female with long history of bronchiectasis. 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 Patient has failed outpatient therapy with multiple courses of oral antibiotics. Patient is now to the point that she has exhausted outpatient options and was brought into the hospital for IV therapy on 10/29/2022. She is currently on day 4 of systemic antibiotics with cefepime. Sputum cultures have been collected and revealed Gram negative bacilli. ID and sensitivity still pending. Patient is on day 4 of aggressive pulmonary toileting and seems to be improving. She does remain hypoxic and required supplemental oxygen at this time with saturations dropping down to 83% at rest on room air. Recommendations: 1. Resistant Pseudomonas aeruginosa pneumonia: * Failed outpatient therapy with ciprofloxacin * Currently day #4 of systemic cefepime * Patient has not tolerated inhaled tobramycin in the past. We will begin inpatient trial tomorrow with tobramycin 300 mg by inhalation twice daily x28 days. Patient should also be continued on systemic antibiotics for at least 10 days * If patient tolerates tobramycin, consider to discharge home over the weekend. Patient can follow-up with the pulmonary clinic in [place]. This appointment will be scheduled by the pulmonary team * Await ID and sensitivity of sputum culture * No indication for bronchoscopy at this time. Can resume apixaban * Continue with pulmonary toileting with flutter valve, pneumo vest, hypertonic saline, DuoNeb 2. Hypoxia: * Patient does have supplemental oxygen at home already * Continue patient on 2 L/min by nasal cannula . Patient encouraged to keep SaO2 between 88 and 92% 3. COPD: * Lifetime non-smoker * No history of alpha antitrypsin 1. At this time no benefit in testing * Gold class III/D with FVC of 52% of predicted, FEV1 of 43% of predicted, FEV1/FVC of 58% of predicted. Patient with significantly reduced DLCO of 34% with correction to alveolar volume of 67% * Continue Qvar for now. * Patient with history of paradoxical reaction to albuterol. Supervised administration of albuterol x2 3 hours apart today with no adverse effect. Remove albuterol from allergy list and start DuoNeb QIDR while inpatient as well as every 2 hours as needed * Can discharge home on DuoNeb to be used every 3 hours as needed * Will adjust other outpatient medications at clinic visit based on how patient is doing 4. Musculoskeletal pain secondary to cough: * Patient states that this is improved today. No pleuritic pain or precordial pain * Continue with heating pad as needed 5. Atrial fibrillation: * Apixaban held on admission secondary to possible need for bronchoscopy. This can be resumed * Patient in normal sinus rhythm on examination and rate controlled with a heart rate of 60 bpm 6. History of epilepsy: * Stable dose of Keppra for several years with no adjustment * No history of seizure for several years * Continue current medications Thank you for including us in the care of this patient. We will continue to follow along with you. Admission and Anticipated Discharge Date Admission Date: October 29, 2022 Subjective Attendimg: Dr. Cortes Patient is doing better today. Continues to have persistent cough with sputum production. Sputum seems to be lightening in color. Today is day 4 of systemic cefepime. Patient agreeable to trial of albuterol under direct supervision. No fever, sweats, chills. No B type symptoms. No chest pain or tightness. Patient does have some slight flank pain which is associated with cough from cur rent pulmonary toileting and other treatment for mucus clearance. No lower extremity edema. No other acute complaints. Overall patient feels that she is improving. Review of Systems Review of Systems: A total of 10 systems was reviewed and is negative other than as listed in the HPI Physical Exam Physical Exam: GENERAL : No acute distress. Patient appears to be less ill. EYES: No icterus, gaze conjugate NOSE: No evidence of epistaxis MOUTH: No lesions or candidiasis NECK: Supple. No appreciation of stridor LUNGS: Persistent rhonchi. No appreciation of rales or bronchospasm HEART: Regular, rate controlled ABDOMEN: Soft, NT, ND, BS Present EXTREMITIES: No LE edema, pedal pulses intact NEURO: A&OX3 Results & Data Results & Data Vital Signs (Past 12 Hours) Vital Signs Temp Pulse Resp BP BP Pulse Ox O2 Del Method 10/31/22 10:41 20 Nasal Cannula 10/31/22 10:04 Room Air 10/31/22 09:26 78 109/59 L 10/31/22 08:05 36.5 C 60 18 122/71 100 Nebulizer 10/31/22 07:49 67 16 98 Nasal Cannula 10/30/22 23:14 61 16 98 Nasal Cannula O2 Flow Rate 10/31/22 10:41 3 10/31/22 10:04 10/31/22 09:26 10/31/22 08:05 10/31/22 07:49 2 10/30/22 23:14 2 Critical Care Results & Data Vital Signs (Past 12 Hours) Vital Signs Temp Pulse Resp BP Pulse Ox O2 Del Method O2 Flow Rate 10/31/22 19:22 Nasal Cannula 3 10/31/22 22:42 68 18 95 Nasal Cannula 1 10/31/22 22:20 36.6 C 70 20 115/62 96 Nasal Cannula 2 10/31/22 19:42 69 18 93 Nasal Cannula 2 Lab & Micro Results (Past 24 Hours) No Data to Display Creatinine 0.72 mg/dl (0.6-1.2) 10/31/22 Estimated GFR ( Amer) 89.1 ml/min 10/31/22 Estimated GFR (Non-Af Amer) 76.9 ml/min 10/31/22 No Data to Display Microbiology 10/29/22 12:00 Gram Stain - Final Sputum, Expectorated Sputum Culture - Preliminary Gram negative bacilli 10/29/22 12:00 Acid Fast Bacilli Smear - Final Sputum, Expectorated I & O Totals 24 Hours 10/30/22 10/31/22 11/01/22 06:59 06:59 06:59 Intake Total 250 / 250 1560 / 1560 480 / 480 Balance 250 / 250 1560 / 1560 480 / 480 Cumulative 10/29/22 thru 10/31/22 14:00 Intake Total 2290 Balance 2290 RT Ventilator Mngmt (Last Documented) Ventilator Ordered Settings Respiratory Rate 18 10/31/22 22:42 Ventilator - PT Measurements Respiratory Rate 18 PG Care Time/CCT Total # of Minutes Spent Total Time Spent with Patient: Total time spent is greater than 50% in coordination of care (as documented) at patient's floor/unit and/or counseling patient: 40 minutes [id number] with patient over 2 visits Coding Level of Care Code 76184 SUB INP/OBS CARE 350MIN Diagnoses Acute exacerbation of bronchiectasis J47.1 Musculoskeletal chest pain R07.89 Pseudomonal pneumonia J15.1 GERD (gastroesophageal reflux disease) K21.9 Atrial fibrillation I48.91 On home oxygen therapy Z99.81 Chronic obstructive pulmonary disease J44.9 Epilepsy G40.909 Time Spent (min) 40 Comment Including significant medication changes and supervised administration of medica tions
[2022-10-31] MEDS: ACETAMINOPHEN 325 MG TAB PO PRN (13:50)
--- NOTE | 2022-10-31 14:22 | Hospitalist Progress Note ---
Date of Service October 31, 2022 Assessment & Plan (1) Pseudomonal pneumonia: Plan: 82-year-old female admitted for pseudomonal pneumonia requiring IV antibiotics, history of Pseudomonas positive culture with fluoroquinolone resistance Pseudomonal pneumonia, bronchiectasis Prior CT confirmed bronchiectasis, prior positive culture for Pseudomonas No leukocytosis Renal functional with normal baseline, creatinine 0.77 on admission. eGFR 70/creatinine clearance 47 COVID-negative Continue cefepime every 8 hours Failed outpatient antibiotic (ciprofloxacin) therapy. Has a history of fluoroquinolone resistant Pseudomonas. Awaiting sputum culture sensitivities. Continue acetylcysteine, hypertonic saline Continue flutter valve, incentive spirometry Ipratropium nebs as needed Do not use albuterol nebulized due to allergy/paradoxic reaction Pulmonary on board. No bronchoscopy anticipated at this time. (2) GERD (gastroesophageal reflux disease): Plan: Continue PPI (3) Atrial fibrillation: Plan: Well-controlled, sinus on admission Continue flecainide/metoprolol No evidence of RVR, patient denies recent episodes of RVR (4) Epilepsy: Plan: Stable, no history of breakthrough seizures in many years Continue Keppra 1 g daily home dosing (5) Chronic obstructive pulmonary disease: Plan: Continue Qvar Pulmonology following Nebulizers as noted Flutter valve, symptoms parameters as noted Do not hyper oxygenate due to COPD physiology, goal SPO2 89-94% (6) On home oxygen therapy: Plan: Continue oxygen as noted Plan DVT prophylaxis: Continue apixaban Diet: Heart healthy Disposition: Medical surgical CODE STATUS DNR/DNI Admission and Anticipated Discharge Date Admission Date: October 29, 2022 Subjective Patient feels better overall. Denies chest pain or shortness of breath at rest Review of Systems Review of Systems: All systems reviewed & are unremarkable except as noted in Subjective Physical Exam Physical Exam: General: Awake, conversant Heart: S1, S2/regular rate and rhythm, no murmur rubs or gallops Lungs: Bilateral crackles. Normal effort Abdomen: Soft/nontender/nondistended. No hepatosplenomegaly Extremities: No clubbing/cyanosis. No edema Behavior: Appropriate, cooperative Results & Data Results & Data Vital Signs (Past 12 Hours) Vital Signs Temp Pulse Resp BP BP Pulse Ox O2 Del Method 10/31/22 13:38 78 18 96 Nasal Cannula 10/31/22 10:41 20 Nasal Cannula 10/31/22 10:04 Room Air 10/31/22 09:26 78 109/59 L 10/31/22 08:05 36.5 C 60 18 122/71 100 Nebulizer 10/31/22 07:49 67 16 98 Nasal Cannula O2 Flow Rate 10/31/22 13:38 2 10/31/22 10:41 3 10/31/22 10:04 10/31/22 09:26 10/31/22 08:05 10/31/22 07:49 2 PG Care Time/CCT Total # of Minutes Spent Total Time Spent with Patient: Total time spent is greater than 50% in coordination of care (as documented) at patient's floor/unit and/or counseling patient: Coding Level of Care Code 86730 SUB INP/OBS CARE 2/35MIN Diagnoses Pseudomonal pneumonia J15.1 GERD (gastroesophageal reflux disease) K21.9 Atrial fibrillation I48.91 Epilepsy G40.909 Chronic obstructive pulmonary disease J44.9 On home oxygen therapy Z99.81
[2022-10-31] MEDS: SIMVASTATIN 20 MG TAB PO SCH (19:24)
[2022-11-01] MEDS ORDERED: ALBUT/IPRATROP 3MG/0.5MG NEB 3 ML VIAL NEB PRN (06:05)
[2022-11-01] MEDS: SODIUM CHLOR 7% 4 ML NEB NEB SCH ×2 (07:35→19:28)
[2022-11-01] MEDS: ALBUT/IPRATROP 3MG/0.5MG NEB 3 ML VIAL NEB SCH ×4 (07:35→19:28)
--- NOTE | 2022-11-01 08:02 | XRay Report ---
XR chest 1V portable HISTORY: Bronchiectasis, pneumonia COMPARISON: Chest 10/29/2022. FINDINGS: No pneumothorax. The cardiac silhouette remains enlarged. Patchy bibasilar densities, left greater than right, persist. No evidence for pulmonary edema. Emphysema. Postoperative changes again noted within the shoulders. Scoliosis. IMPRESSION: 1. No change compared to the prior study. 2. Cardiomegaly and patchy bibasilar densities persist. This may represent atelectasis or a pneumonia . ACT 112: Negative or not required by law. Electronically signed by: Lino Sanders M.D. 11/01/2022 8:00 AM
[2022-11-01 08:13] LABS: Est GFR (African American) 82.2 ml/min; Est GFR (Non-African American) 70.9 ml/min
[2022-11-01] MEDS: MULTIVITAMIN TAB PO SCH (08:53)
[2022-11-01] MEDS: CALCIUM 600MG + VIT D 400 IU TAB PO SCH ×2 (08:53→20:36)
[2022-11-01] MEDS: PARoxetine HCL 20 MG TAB PO SCH ×2 (08:53→20:36)
[2022-11-01] MEDS: FUROSEMIDE 40 MG TAB PO SCH (08:54)
[2022-11-01] MEDS: levETIRAcetam 500 MG TAB PO SCH ×2 (08:54→20:35)
[2022-11-01] MEDS: CHOLECALCIFEROL 5,000 UNITS 125 MCG TAB PO SCH (08:54)
[2022-11-01] MEDS: METOPROLOL TARTRATE 25 MG TAB PO SCH (08:55)
[2022-11-01] MEDS: FLECAINIDE ACETATE 100 MG TABLET PO SCH ×2 (08:55→20:36)
[2022-11-01] MEDS: HEPARIN SOD 5,000 UNIT/0.5 ML VIAL SQ SCH ×2 (08:57→20:37)
[2022-11-01] MEDS: TOBRAMYCIN SULFATE VIAL INH SCH ×2 (10:59→21:04)
[2022-11-01] MEDS: ACETAMINOPHEN 500 MG TAB PO PRN ×2 (11:18→19:35)
[2022-11-01] MEDS: CEFEPIME 2,000 MG in SYRINGE 0 ML IV SCH ×2 (12:23→23:05)
--- NOTE | 2022-11-01 12:50 | Pulmonology Progress Note ---
Date of Service November 01, 2022 Assessment & Plan (1) Acute exacerbation of bronchiectasis: (2) Musculoskeletal chest pain: (3) Pseudomonal pneumonia: (4) GERD (gastroesophageal reflux disease): (5) Atrial fibrillation: (6) On home oxygen therapy: (7) Chronic obstructive pulmonary disease: Plan Continue cefepime. Sputum cultures from the 17 sensitive to cefepime but resistant to Levaquin. Continue nebulized tobramycin as she appears to be tolerating this. This will need to be sent home with her discharge and she will need to be on this for 28-day cycles. Will need 2 weeks of IV antibiotics and likely will need placement of a PICC line or endurance catheter. Will obtain CT chest today to take a closer look at the parenchymal abnormalities. Admission and Anticipated Discharge Date Admission Date: October 29, 2022 Subjective Patient continues to have cough with sputum production. Requiring 1 L oxygen at rest. Tolerating diet. Has some chest pain from coughing. Review of Systems Review of Systems: All systems reviewed & are unremarkable except as noted in Subjective Physical Exam Physical Exam: GENERAL : No acute distress EYES: No icterus, gaze conjugate NOSE: No evidence of epistaxis MOUTH: No lesions or candidiasis. Mucosa is moist NECK: Supple. No appreciation of stridor LUNGS: Coarse crackles at the bases as well as rhonchi throughout. No appreciat ion of bronchospasm HEART: Regular, rate controlled ABDOMEN: Soft, NT, ND, BS Present EXTREMITIES: No LE edema, pedal pulses intact NEURO: A&OX3 Results & Data Results & Data Vital Signs (Past 12 Hours) Vital Signs Temp Pulse Resp BP Pulse Ox O2 Del Method O2 Flow Rate 11/01/22 10:59 71 18 96 Nasal Cannula 1 11/01/22 07:30 Nasal Cannula 3 11/01/22 07:43 36.4 C L 79 16 136/81 97 Nasal Cannula 1 11/01/22 07:37 67 18 97 Nasal Cannula 1 PG Care Time/CCT Total # of Minutes Spent Total Time Spent with Patient: Total time spent is greater than 50% in coordination of care (as documented) at patient's floor/unit and/or counseling patient: Coding Level of Care Code 48718 SUB INP/OBS CARE 2/35MIN Diagnoses Acute exacerbation of bronchiectasis J47.1 Musculoskeletal chest pain R07.89 Pseudomonal pneumonia J15.1 GERD (gastroesophageal reflux disease) K21.9 Atrial fibrillation I48.91 On home oxygen therapy Z99.81 Chronic obstructive pulmonary disease J44.9
--- NOTE | 2022-11-01 14:10 | CT Scan Report ---
CT SCAN OF THE CHEST WITHOUT IV CONTRAST CLINICAL HISTORY: Pneumonia. COMPARISON STUDY: Chest x-ray dated 11/01/2022. Chest CT scans dated 10/05/2022 and 12/04/2006. TECHNIQUE: CT scan of the thorax was performed from the thoracic inlet to the upper abdomen. Images are reviewed in the axial, sagittal, and coronal planes. IV contrast was not administered for this ex amination as per the referring clinician. A dose lowering technique was utilized adhering to the adan Duncan. The examination is degraded by streak artifact from bilateral shoulder arthroplasti es. CT DOSE: 519.16 mGy.cm FINDINGS: Thyroid: Normal in size and heterogeneous in attenuation. Thoracic aorta: There is atherosclerotic calcification of the thoracic aorta, which is normal in ira asim and demonstrates standard 3-vessel arch anatomy. Heart: The heart is mildly enlarged noting trace pericardial effusion. Lungs and pleural spaces: There is dense dependent airspace consolidation at both lung bases. Patchy groundglass consolidation is seen at the right lung base. There are minimal patchy opacities in the l eft upper lobe. No pleural effusion is identified. The trachea and central airways are clear. Intralu alma rosa secretions/debris is seen throughout the lower lobe airways the associated peribronchial thicke kathleen. Mediastinum: Prominent mediastinal lymph nodes measure up to 9 mm in short axis. Fany: Not well assessed without IV contrast. Axillae: There is no axillary lymphadenopathy. Upper abdomen: Partially visualized upper abdominal viscera is within normal limits. Skeletal structures: The skeletal structures are osteopenic. Degenerative changes and kyphoscoliosis is noted in the thoracic spine. No lytic or blastic bony lesions are seen. Bilateral shoulder arthrop lasties are in place. IMPRESSION: 1. Dense dependent airspace consolidation is seen at both lung bases, with mild patchy ground glass c onsolidation at the right lung base. These findings likely represent pneumonia/aspiration pneumonitis , likely with superimposed atelectasis. Intraluminal secretions/debris fills the lower lobe airways a nd aspiration is favored. Correlate clinically. Findings are similar to the 10/05/2022 examination. 2. No pleural effusion is seen. 3. Prominent mediastinal lymph nodes are likely reactive. 4. Mild cardiomegaly. 5. Additional findings as above. ACT 112: Negative or not required by law. Electronically signed by: Jerry Neff M.D. 11/01/2022 2:09 PM
[2022-11-01] MEDS ORDERED: Nursing to Pharmacy Communication SCH (14:45)
--- NOTE | 2022-11-01 16:40 | Hospitalist Progress Note ---
Date of Service November 01, 2022 Assessment & Plan (1) Pseudomonal pneumonia: Plan: 82-year-old female admitted for pseudomonal pneumonia requiring IV antibiotics, history of Pseudomonas positive culture with fluoroquinolone resistance Pseudomonal pneumonia, bronchiectasis Prior CT confirmed bronchiectasis, prior positive culture for Pseudomonas No leukocytosis Renal functional with normal baseline, creatinine 0.77 on admission. eGFR 70/creatinine clearance 47 COVID-negative Continue cefepime every 8 hours Per pulmonology, patient will need to be on 2 weeks of IV cefepime. Failed outpatient antibiotic (ciprofloxacin) therapy. Has a history of fl uoroquinolone resistant Pseudomonas. Sputum culture from 10/29 sensitive to cefepime but resistant to Levaquin Was started on nebulized tobramycin by pulmonology. Patient will need to be discharged on nebulized tobramycin. She will need to be on this for 28 days Continue acetylcysteine, hypertonic saline Continue flutter valve, incentive spirometry Ipratropium nebs as needed Do not use albuterol nebulized due to allergy/paradoxic reaction Pulmonary on board. Ordering CT chest today. (2) GERD (gastroesophageal reflux disease): Plan: Continue PPI (3) Atrial fibrillation: Plan: Well-controlled, sinus on admission Continue flecainide/metoprolol No evidence of RVR, patient denies recent episodes of RVR (4) Epilepsy: Plan: Stable, no history of breakthrough seizures in many years Continue Keppra 1 g daily home dosing (5) Chronic obstructive pulmonary disease: Plan: Continue Qvar Pulmonology following Nebulizers as noted Flutter valve, symptoms parameters as noted Do not hyper oxygenate due to COPD physiology, goal SPO2 89-94% (6) On home oxygen therapy: Plan: Continue oxygen as noted Plan DVT prophylaxis: Continue apixaban Diet: Heart healthy Disposition: Medical surgical CODE STATUS DNR/DNI Admission and Anticipated Discharge Date Admission Date: October 29, 2022 Subjective Patient continues to have cough with sputum production. Complains of chest pain from coughing Review of Systems Review of Systems: All systems reviewed & are unremarkable except as noted in Subjective Physical Exam Physical Exam: General: Awake, conversant Heart: S1, S2/regular rate and rhythm, no murmur rubs or gallops Lungs: Bilateral crackles. Normal effort Abdomen: Soft/nontender/nondistended. No hepatosplenomegaly Extremities: No clubbing/cyanosis. No edema Behavior: Appropriate, cooperative Results & Data Results & Data Vital Signs (Past 12 Hours) Vital Signs Temp Pulse Resp BP Pulse Ox O2 Del Method O2 Flow Rate 11/01/22 15:33 36.7 C 65 16 105/66 97 Nasal Cannula 3 11/01/22 14:57 71 15 97 Nasal Cannula 3 11/01/22 10:59 71 18 96 Nasal Cannula 1 11/01/22 07:30 Nasal Cannula 3 11/01/22 07:43 36.4 C L 79 16 136/81 97 Nasal Cannula 1 11/01/22 07:37 67 18 97 Nasal Cannula 1 Diagnostic Findings Chest X-Ray 11/01/22 07:00 XR chest 1V portable HISTORY: Bronchiectasis, pneumonia COMPARISON: Chest 10/29/2022. FINDINGS: No pneumothorax. The cardiac silhouette remains enlarged. Patchy bibasilar densities, left greater than right, persist. No evidence for pulmonary edema. Emphysema. Postoperative changes again noted within the shoulders. Scoliosis. IMPRESSION: 1. No change compared to the prior study. 2. Cardiomegaly and patchy bibasilar densities persist. This may represent atelectasis or a pneumonia. ACT 112: Negative or not required by law. Electronically signed by: Lino Sanders M.D. 11/01/2022 8:[address] 11/01/22 12:47 CT SCAN OF THE CHEST WITHOUT IV CONTRAST CLINICAL HISTORY: Pneumonia. COMPARISON STUDY: Chest x-ray dated 11/01/2022. Chest CT scans dated 10/05/2022 and 12/04/2006. TECHNIQUE: CT scan of the thorax was performed from the thoracic inlet to the upper abdomen. Images are reviewed in the axial, sagittal, and coronal planes. IV contrast was not administered for this examination as per the referring clinician. A dose lowering technique was utilized adhering to the principles of ALARA. The examination is degraded by streak artifact from bilateral shoulder arthroplasties. CT DOSE: 519.16 mGy.cm FINDINGS: Thyroid: Normal in size and heterogeneous in attenuation. Thoracic aorta: There is atherosclerotic calcification of the thoracic aorta, which is normal in caliber and demonstrates standard 3-vessel arch anatomy. Heart: The heart is mildly enlarged noting trace pericardial effusion. Lungs and pleural spaces: There is dense dependent airspace consolidation at both lung bases. Patchy groundglass consolidation is seen at the right lung base. There are minimal patchy opacities in the left upper lobe. No pleural effusion is identified. The trachea and central airways are clear. Intraluminal secretions/debris is seen throughout the lower lobe airways the associated peribronchial thickening. Mediastinum: Prominent mediastinal lymph nodes measure up to 9 mm in short axis. Fany: Not well assessed without IV contrast. Axillae: There is no axillary lymphadenopathy. Upper abdomen: Partially visualized upper abdominal viscera is within normal limits. Skeletal structures: The skeletal structures are osteopenic. Degenerative changes and kyphoscoliosis is noted in the thoracic spine. No lytic or blastic bony lesions are seen. Bilateral shoulder arthroplasties are in place. IMPRESSION: 1. Dense dependent airspace consolidation is seen at both lung bases, with mild patchy ground glass consolidation at the right lung base. These findings likely represent pneumonia/aspiration pneumonitis, likely with superimposed atelectasis. Intraluminal secretions/debris fills the lower lobe airways and a spiration is favored. Correlate clinically. Findings are similar to the 10/05/2022 examination. 2. No pleural effusion is seen. 3. Prominent mediastinal lymph nodes are likely reactive. 4. Mild cardiomegaly. 5. Additional findings as above. ACT 112: Negative or not required by law. Electronically signed by: Jerry Neff M.D. 11/01/2022 2:09 PM PG Care Time/CCT Total # of Minutes Spent Total Time Spent with Patient: Total time spent is greater than 50% in coordination of care (as documented) at patient's floor/unit and/or counseling patient: Coding Level of Care Code 26594 SUB INP/OBS CARE 2/35MIN Diagnoses Pseudomonal pneumonia J15.1 GERD (gastroesophageal reflux disease) K21.9 Atrial fibrillation I48.91 Epilepsy G40.909 Chronic obstructive pulmonary disease J44.9 On home oxygen therapy Z99.81
[2022-11-01] MEDS: SIMVASTATIN 20 MG TAB PO SCH (20:35)
[2022-11-01] MEDS: guaiFENesin 600 MG TABCR PO PRN (23:59)
[2022-11-02] MEDS: ACETAMINOPHEN 500 MG TAB PO PRN ×2 (00:04→08:24)
[2022-11-02] MEDS: ALBUT/IPRATROP 3MG/0.5MG NEB 3 ML VIAL NEB SCH ×4 (07:04→20:11)
[2022-11-02] MEDS: TOBRAMYCIN SULFATE VIAL INH SCH ×2 (07:04→20:15)
[2022-11-02] MEDS: SODIUM CHLOR 7% 4 ML NEB NEB SCH ×2 (07:04→20:11)
[2022-11-02 07:09] LABS: Creatinine Clr Calc Pharmacy 45.2 ml/min; Est GFR (African American) 78.5 ml/min; Est GFR (Non-African American) 67.7 ml/min
[2022-11-02] MEDS: oxyCODONE/ACETAMINOPHEN 5mg/325mg TAB PO PRN ×3 (09:01→21:04)
[2022-11-02] MEDS: FLECAINIDE ACETATE 100 MG TABLET PO SCH ×2 (10:01→20:56)
[2022-11-02] MEDS: MULTIVITAMIN TAB PO SCH (10:01)
[2022-11-02] MEDS: CALCIUM 600MG + VIT D 400 IU TAB PO SCH ×2 (10:01→20:57)
[2022-11-02] MEDS: METOPROLOL TARTRATE 25 MG TAB PO SCH (10:02)
[2022-11-02] MEDS: levETIRAcetam 500 MG TAB PO SCH ×2 (10:02→20:54)
[2022-11-02] MEDS: HEPARIN SOD 5,000 UNIT/0.5 ML VIAL SQ SCH ×2 (10:02→20:59)
[2022-11-02] MEDS: CHOLECALCIFEROL 5,000 UNITS 125 MCG TAB PO SCH (10:02)
[2022-11-02] MEDS: FUROSEMIDE 40 MG TAB PO SCH (10:44)
--- NOTE | 2022-11-02 11:56 | Pulmonology Progress Note ---
Date of Service November 02, 2022 Assessment & Plan (1) Acute exacerbation of bronchiectasis: (2) Musculoskeletal chest pain: (3) Pseudomonal pneumonia: (4) GERD (gastroesophageal reflux disease): (5) Atrial fibrillation: (6) On home oxygen therapy: (7) Chronic obstructive pulmonary disease: Plan Continue cefepime. Sputum cultures from the sensitive to cefepime but resistant to Levaquin. Continue nebulized tobramycin as she appears to be tolerating this. This will need to be sent home with her on discharge and she will need to be on this for 28-day cycles. Will need 2 weeks of IV antibiotics and likely will need placement of a PICC line or endurance catheter. CT chest 11/01/2022 with dense dependent airspace consolidation at the bases bilaterally. She has superimposed atelectasis. There is debris in the lower airways likely secondary to aspiration. Admission and Anticipated Discharge Date Admission Date: October 29, 2022 Subjective She had a poor night last night and had increased wheezing. She notes that she slept very poorly. Shortness of breath and cough is stable today. She does note a darker color to her sputum. She denies any blood. Review of Systems Review of Systems: All systems reviewed & are unremarkable except as noted in HPI & below Physical Exam Physical Exam: GENERAL : No acute distress EYES: No icterus, gaze conjugate NOSE: No evidence of epistaxis MOUTH: No lesions or candidiasis. Mucosa is moist NECK: Supple. No appreciation of stridor LUNGS: Coarse crackles at the bases as well as rhonchi throughout. No appreciation of bronchospasm HEART: Regular, rate controlled ABDOMEN: Soft, NT, ND, BS Present EXTREMITIES: No LE edema, pedal pulses intact NEURO: A&OX3 Results & Data Results & Data Vital Signs (Past 12 Hours) Vital Signs Temp Pulse Resp BP Pulse Ox O2 Del Method O2 Flow Rate 11/02/22 11:46 85 20 98 Nasal Cannula 2 11/02/22 10:00 82 112/68 11/02/22 08:15 36.5 C 78 18 115/68 97 Nasal Cannula 2 11/02/22 07:05 71 16 98 Nasal Cannula 2 11/02/22 00:00 96 Nasal Cannula 2 PG Care Time/CCT Total # of Minutes Spent Total Time Spent with Patient: Total time spent is greater than 50% in coordination of care (as documented) at patient's floor/unit and/or counseling patient: Coding Level of Care Code 76262 SUB INP/OBS CARE MIN Diagnoses Acute exacerbation of bronchiectasis J47.1 Musculoskeletal chest pain R07.89 Pseudomonal pneumonia J15.1 GERD (gastroesophageal reflux disease) K21.9 Atrial fibrillation I48.91 On home oxygen therapy Z99.81 Chronic obstructive pulmonary disease J44.9
[2022-11-02] MEDS: Cefepime 2,000 MG Extended Infusion IV SCH (12:39)
[2022-11-02] MEDS: guaiFENesin 600 MG TABCR PO PRN (12:50)
--- NOTE | 2022-11-02 14:47 | Hospitalist Progress Note ---
Date of Service November 02, 2022 Assessment & Plan (1) Pseudomonal pneumonia: Plan: 82-year-old female admitted for pseudomonal pneumonia requiring IV antibiotics, history of Pseudomonas positive culture with fluoroquinolone resistance Pseudomonal pneumonia, bronchiectasis Prior CT confirmed bronchiectasis, prior positive culture for Pseudomonas No leukocytosis Renal functional with normal baseline, creatinine 0.77 on admission. eGFR 70/creatinine clearance 47 COVID-negative Continue cefepime every 8 hours Per pulmonology, patient will need to be on 2 weeks of IV cefepime. PICC line ordered. Failed outpatient antibiotic (ciprofloxacin) therapy. Has a history of fluoroquinolone resistant Pseudomonas. Sputum culture from 10/29 sensitive to cefepime but resistant to Levaquin Was started on nebulized tobramycin by pulmonology. Patient will need to be discharged on nebulized tobramycin. She will need to be on this for 28 days Continue acetylcysteine, hypertonic saline Continue flutter valve, incentive spirometry Ipratropium nebs as needed Do not use albuterol nebulized due to allergy/paradoxic reaction CT chest findings reviewed. [facility] to [facility] her over the [facility] to [facility] custodial facility for IV antibiotics (2) GERD (gastroesophageal reflux disease): Plan: Continue PPI (3) Atrial fibrillation: Plan: Well-controlled, sinus on admission Continue flecainide/metoprolol No evidence of RVR, patient denies recent episodes of RVR (4) Epilepsy: Plan: Stable, no history of breakthrough seizures in many years Continue Keppra 1 g daily home dosing (5) Chronic obstructive pulmonary disease: Plan: Continue Qvar Pulmonology following Nebulizers as noted Flutter valve, symptoms parameters as noted Do not hyper oxygenate due to COPD physiology, goal SPO2 89-94% (6) On home oxygen therapy: Plan: Continue oxygen as noted Plan DVT prophylaxis: Continue apixaban Diet: Heart healthy Disposition: Medical surgical CODE STATUS DNR/DNI Admission and Anticipated Discharge Date Admission Date: October 29, 2022 Subjective Patient says that she did not have a good night sleep. She was wheezy and coughing overnight. She does not feel well today because of lack of sleep. Review of Systems Review of Systems: All systems reviewed & are unremarkable except as noted in Subjective Physical Exam Physical Exam: General: Awake, conversant Heart: S1, S2/regular rate and rhythm, no murmur rubs or gallops Lungs: Bilateral crackles. Normal effort Abdomen: Soft/nontender/nondistended. No hepatosplenomegaly Extremities: No clubbing/cyanosis. No edema Behavior: Appropriate, cooperative Results & Data Results & Data Vital Signs (Past 12 Hours) Vital Signs Temp Pulse Resp BP Pulse Ox O2 Del Method O2 Flow Rate 11/02/22 14:40 36.7 C 76 18 108/69 97 Nasal Cannula 2 11/02/22 08:20 Nasal Cannula 2 11/02/22 11:46 85 20 98 Nasal Cannula 2 11/02/22 10:00 82 112/68 11/02/22 08:15 36.5 C 78 18 115/68 97 Nasal Cannula 2 11/02/22 07:05 71 16 98 Nasal Cannula 2 PG Care Time/CCT Total # of Minutes Spent Total Time Spent with Patient: Total time spent is greater than 50% in coordination of care (as documented) at patient's floor/unit and/or counseling patient: Coding Level of Care Code 88224 SUB INP/OBS CARE 2/35MIN Diagnoses Pseudomonal pneumonia J15.1 GERD (gastroesophageal reflux disease) K21.9 Atrial fibrillation I48.91 Epilepsy G40.909 Chronic obstructive pulmonary disease J44.9 On home oxygen therapy Z99.81
[2022-11-02] MEDS: PARoxetine HCL 20 MG TAB PO SCH (20:57)
[2022-11-02] MEDS: SIMVASTATIN 20 MG TAB PO SCH (20:58)
[2022-11-03] MEDS: Cefepime 2,000 MG Extended Infusion IV SCH ×3 (00:27→23:38)
[2022-11-03] MEDS: ALBUT/IPRATROP 3MG/0.5MG NEB 3 ML VIAL NEB SCH ×4 (07:21→19:41)
[2022-11-03] MEDS: SODIUM CHLOR 7% 4 ML NEB NEB SCH ×2 (07:21→19:41)
[2022-11-03] MEDS: oxyCODONE/ACETAMINOPHEN 5mg/325mg TAB PO PRN (08:21)
[2022-11-03] MEDS: HEPARIN SOD 5,000 UNIT/0.5 ML VIAL SQ SCH ×2 (09:32→20:36)
[2022-11-03] MEDS: levETIRAcetam 500 MG TAB PO SCH ×2 (09:32→20:36)
[2022-11-03] MEDS: METOPROLOL TARTRATE 25 MG TAB PO SCH (09:32)
[2022-11-03] MEDS: MULTIVITAMIN TAB PO SCH (09:33)
[2022-11-03] MEDS: FLECAINIDE ACETATE 100 MG TABLET PO SCH ×2 (09:33→20:35)
[2022-11-03] MEDS: CALCIUM 600MG + VIT D 400 IU TAB PO SCH ×2 (09:33→20:34)
[2022-11-03] MEDS: CHOLECALCIFEROL 5,000 UNITS 125 MCG TAB PO SCH (09:33)
[2022-11-03] MEDS: FUROSEMIDE 40 MG TAB PO SCH (09:33)
[2022-11-03] MEDS: TOBRAMYCIN SULFATE VIAL INH SCH ×2 (11:53→19:44)
--- NOTE | 2022-11-03 13:14 | Pulmonology Progress Note ---
Date of Service November 03, 2022 Assessment & Plan (1) Acute exacerbation of bronchiectasis: (2) Musculoskeletal chest pain: (3) Pseudomonal pneumonia: (4) GERD (gastroesophageal reflux disease): (5) Atrial fibrillation: (6) On home oxygen therapy: (7) Chronic obstructive pulmonary disease: (8) Insomnia: Plan Continue cefepime. Sputum cultures from the sensitive to cefepime but resistant to Levaquin. Continue nebulized tobramycin as she appears to be tolerating this. This will need to be sent home with her on discharge and she will need to be on this for 28-day cycles. Will need 2 weeks of IV antibiotics and likely will need placement of a PICC line or endurance catheter. Continue percussive vest therapy, hypertonic saline and Mucinex. CT chest 11/01/2022 with dense dependent airspace consolidation at the bases bilaterally. She has superimposed atelectasis. There is debris in the lower airways likely secondary to aspiration. Patient notes ongoing insomnia. Defer to the primary team. Discussed with hospitalist at bedside. Admission and Anticipated Discharge Date Admission Date: October 29, 2022 Subjective Patient notes that she slept better yesterday. She denies any fevers, chills or night sweats. She still has a cough that is productive of sputum. She notes that the sputum is becoming clear. Review of Systems Review of Systems: All systems reviewed & are unremarkable except as noted in HPI & below Physical Exam Physical Exam: GENERAL : No acute distress EYES: No icterus, gaze conjugate NOSE: No evidence of epistaxis MOUTH: No lesions or candidiasis. Mucosa is moist NECK: Supple. No appreciation of stridor LUNGS: Coarse crackles at the bases as well as rhonchi throughout. No appreciation of bronchospasm HEART: Regular, rate controlled ABDOMEN: Soft, NT, ND, BS Present EXTREMITIES: No LE edema, pedal pulses intact NEURO: A&OX3 Results & Data Results & Data Vital Signs (Past 12 Hours) Vital Signs Temp Pulse Resp BP Pulse Ox O2 Del Method O2 Flow Rate 11/03/22 11:21 20 88 L Nasal Cannula 2 11/03/22 08:15 36.8 C 97 H 20 123/62 94 Nasal Cannula 2 11/03/22 07:21 82 13 99 Nasal Cannula 2 PG Care Time/CCT Total # of Minutes Spent Total Time Spent with Patient: Total time spent is greater than 50% in coordination of care (as documented) at patient's floor/unit and/or counseling patient: Coding Level of Care Code 67199 SUB INP/OBS CARE 2/35MIN Diagnoses Acute exacerbation of bronchiectasis J47.1 Musculoskeletal chest pain R07.89 Pseudomonal pneumonia J15.1 GERD (gastroesophageal reflux disease) K21.9 Atrial fibrillation I48.91 On home oxygen therapy Z99.81 Chronic obstructive pulmonary disease J44.9 Insomnia G47.00
[2022-11-03] MEDS ORDERED: MELATONIN 3 MG TAB PO PRN (15:12)
--- NOTE | 2022-11-03 15:15 | Hospitalist Progress Note ---
Date of Service November 03, 2022 Assessment & Plan (1) Pseudomonal pneumonia: Plan: 82-year-old female admitted for pseudomonal pneumonia requiring IV antibiotics, history of Pseudomonas positive culture with fluoroquinolone resistance Pseudomonal pneumonia, bronchiectasis Prior CT confirmed bronchiectasis, prior positive culture for Pseudomonas No leukocytosis Renal functional with normal baseline, creatinine 0.77 on admission. eGFR 70/creatinine clearance 47 COVID-negative Continue cefepime every 8 hours Per pulmonology, patient will need to be on 2 weeks of IV cefepime. PICC line ordered. Failed outpatient antibiotic (ciprofloxacin) therapy. Has a history of fluoroquinolone resistant Pseudomonas. Sputum culture from 10/29 sensitive to cefepime but resistant to Levaquin Was started on nebulized tobramycin by pulmonology. Patient will need to be discharged on nebulized tobramycin. She will need to be on this for 28 days Continue acetylcysteine, hypertonic saline Continue flutter valve, incentive spirometry Ipratropium nebs as needed Do not use albuterol nebulized due to allergy/paradoxic reaction CT chest findings reviewed. [facility] to discharge her over the [facility] [place] [facility] for IV [facility] Not ready for discharge today (2) GERD (gastroesophageal reflux disease): Plan: Continue PPI (3) Atrial fibrillation: Plan: Well-controlled, sinus on admission Continue flecainide/metoprolol No evidence of RVR, patient denies recent episodes of RVR (4) Epilepsy: Plan: Stable, no history of breakthrough seizures in many years Continue Keppra daily home dosing In the past, sleep deprivation has triggered seizures In the past few days, the patient has not been able to sleep because of constant coughing Started her on melatonin and Zyprexa to help her sleep overnight. Spoke to the [employer] about her constant coughing. Per [employer], this is to be expected in the setting of bronchiectasis and Pseudomonas pneumonia. Seizure precautions (5) Chronic obstructive pulmonary disease: Plan: Continue Qvar Pulmonology following Nebulizers as noted Flutter valve, symptoms parameters as noted Do not hyper oxygenate due to COPD physiology, goal SPO2 89-94% (6) On home oxygen therapy: Plan: Continue oxygen as noted Plan DVT prophylaxis: Continue apixaban Diet: Heart healthy Disposition: Medical surgical CODE STATUS DNR/DNI Admission and Anticipated Discharge Date Admission Date: October 29, 2022 Subjective Patient says that she has not been able to sleep well the last few nights because of coughing. She says that sleep deprivation can trigger a seizure. Review of Systems Review of Systems: All systems reviewed & are unremarkable except as noted in Subjective Physical Exam Physical Exam: General: Awake, conversant Heart: S1, S2/regular rate and rhythm, no murmur rubs or gallops Lungs: Bilateral crackles. Normal effort Abdomen: Soft/nontender/nondistended. No hepatosplenomegaly Extremities: No clubbing/cyanosis. No edema Behavior: Appropriate, cooperative Results & Data Results & Data Vital Signs (Past 12 Hours) Vital Signs Temp Pulse Resp BP Pulse Ox O2 Del Method O2 Flow Rate 11/03/22 14:33 36.5 C 78 18 134/72 95 Nasal Cannula 2 11/03/22 08:05 Nasal Cannula 2 11/03/22 11:21 20 88 L Nasal Cannula 2 11/03/22 08:15 36.8 C 97 H 20 123/62 94 Nasal Cannula 2 11/03/22 07:21 82 13 99 Nasal Cannula 2 PG Care Time/CCT Total # of Minutes Spent Total Time Spent with Patient: Total time spent is greater than 50% in coordination of care (as documented) at patient's floor/unit and/or counseling patient: Coding Level of Care Code 58238 SUB INP/OBS CARE 2/35MIN Diagnoses Pseudomonal pneumonia J15.1 GERD (gastroesophageal reflux disease) K21.9 Atrial fibrillation I48.91 Epilepsy G40.909 Chronic obstructive pulmonary disease J44.9 On home oxygen therapy Z99.81
[2022-11-03] MEDS: guaiFENesin 600 MG TABCR PO PRN (18:19)
[2022-11-03] MEDS: OLANZAPINE 2.5 MG TAB PO SCH (20:36)
[2022-11-03] MEDS: SIMVASTATIN 20 MG TAB PO SCH (20:37)
[2022-11-03] MEDS: PARoxetine HCL 20 MG TAB PO SCH (20:37)
[2022-11-04] MEDS: oxyCODONE/ACETAMINOPHEN 5mg/325mg TAB PO PRN ×2 (06:00→23:36)
[2022-11-04] MEDS: ALBUT/IPRATROP 3MG/0.5MG NEB 3 ML VIAL NEB SCH ×4 (07:03→19:26)
[2022-11-04] MEDS: SODIUM CHLOR 7% 4 ML NEB NEB SCH ×2 (07:03→19:26)
[2022-11-04] MEDS: TOBRAMYCIN SULFATE VIAL INH SCH ×2 (07:17→19:54)
[2022-11-04 09:01] LABS: Hematocrit (blood only) 35.3 % (37.0-47.0); Hemoglobin 11.2 g/dl (12.0-16.0); Mean Corpuscular Hemoglobin 29.2 pg (25.0-34.0); Mean Corpuscular Hgb Conc 31.7 g/dL (32.0-36.0); Mean Corpuscular Volume 91.9 fL (80.0-100.0); Mean Platelet Volume 9.1 fL (9.4-12.4); Platelet Count 333 K/uL (130-400); RDW Coefficient of Variation 13.6 % (11.5-14.5); RDW Standard Deviation 45.8 fL (36.4-46.3); Red Blood Count 3.84 M/uL (4.20-5.40)
[2022-11-04 09:11] LABS: BUN Creatinine Ratio 22.7 (10-20); Calcium 10.4 mg/dl (8.6-10.3); Creatinine Clr Calc Pharmacy 48.2 ml/min; Est GFR (African American) 84.8 ml/min; Est GFR (Non-African American) 73.2 ml/min
[2022-11-04] MEDS: CHOLECALCIFEROL 5,000 UNITS 125 MCG TAB PO SCH (09:27)
[2022-11-04] MEDS: CALCIUM 600MG + VIT D 400 IU TAB PO SCH ×2 (09:27→20:32)
[2022-11-04] MEDS: MULTIVITAMIN TAB PO SCH (09:27)
[2022-11-04] MEDS: levETIRAcetam 500 MG TAB PO SCH ×2 (09:27→20:34)
[2022-11-04] MEDS: METOPROLOL TARTRATE 25 MG TAB PO SCH (09:27)
[2022-11-04] MEDS: FLECAINIDE ACETATE 100 MG TABLET PO SCH ×2 (09:28→20:33)
[2022-11-04] MEDS: HEPARIN SOD 5,000 UNIT/0.5 ML VIAL SQ SCH ×2 (09:28→20:35)
[2022-11-04] MEDS: FUROSEMIDE 40 MG TAB PO SCH (09:28)
[2022-11-04] MEDS: Cefepime 2,000 MG Extended Infusion IV SCH ×2 (12:25→23:45)
--- NOTE | 2022-11-04 14:26 | Pulmonology Progress Note ---
Date of Service November 04, 2022 Assessment & Plan (1) Acute exacerbation of bronchiectasis: (2) Musculoskeletal chest pain: (3) Pseudomonal pneumonia: (4) On home oxygen therapy: (5) Chronic obstructive pulmonary disease: (6) Insomnia: Plan Continue cefepime for a total of 14 days. Sputum cultures from the 17 sensitive to cefepime, but resistant to Levaquin. Continue nebulized tobramycin as she appears to be tolerating this and is symptomatically improved. This will need to be sent home with her on discharge and she will need to be on this for 28-day cycles. Continue percussive vest therapy, hypertonic saline and Mucinex. CT chest 11/01/2022 with dense dependent airspace consolidation at the bases bilaterally. She has superimposed atelectasis. There is debris in the lower airways likely secondary to aspiration. Patient notes ongoing insomnia. Defer to the primary team. Admission and Anticipated Discharge Date Admission Date: October 29, 2022 Subjective Patient notes that she slept about 6 hours last night. She is ambulating in the room. She notes that her cough has improved significantly and her secretions have thinned. She is less dyspneic. Review of Systems Review of Systems: All systems reviewed & are unremarkable except as noted in HPI & below Physical Exam Physical Exam: GENERAL : No acute distress EYES: No icterus, gaze conjugate NOSE: No evidence of epistaxis MOUTH: No lesions or candidiasis. Mucosa is moist NECK: Supple. No appreciation of stridor LUNGS: Crackles improved. Prolonged phase of exhalation. HEART: Regular, rate controlled ABDOMEN: Soft, NT, ND, BS Present EXTREMITIES: No LE edema, pedal pulses intact NEURO: A&OX3 Results & Data Results & Data Vital Signs (Past 12 Hours) Vital Signs Temp Pulse Resp BP Pulse Ox O2 Del Method O2 Flow Rate 11/04/22 11:23 75 16 98 Nasal Cannula 1 11/04/22 10:10 96 Nasal Cannula 2 11/04/22 10:10 87 L Room Air 11/04/22 07:35 Nasal Cannula 2 11/04/22 07:30 36.7 C 62 18 103/67 97 Room Air 11/04/22 07:19 75 17 97 Nasal Cannula 2 11/04/22 07:08 75 18 97 Nasal Cannula 2 PG Care Time/CCT Total # of Minutes Spent Total Time Spent with Patient: Total time spent is greater than 50% in coordination of care (as documented) at patient's floor/unit and/or counseling patient: Coding Level of Care Code 58776 SUB INP/OBS CARE Diagnoses Acute exacerbation of bronchiectasis J47.1 Musculoskeletal chest pain R07.89 Pseudomonal pneumonia J15.1 On home oxygen therapy Z99.81 Chronic obstructive pulmonary disease J44.9 Insomnia G47.00
--- NOTE | 2022-11-04 14:57 | Hospitalist Progress Note ---
Date of Service November 04, 2022 Assessment & Plan (1) Pseudomonal pneumonia: Plan: 82-year-old female admitted for pseudomonal pneumonia requiring IV antibiotics, history of Pseudomonas positive culture with fluoroquinolone resistance Pseudomonal pneumonia, bronchiectasis Prior CT confirmed bronchiectasis, prior positive culture for Pseudomonas No leukocytosis Renal functional with normal baseline, creatinine 0.77 on admission. eGFR 70/creatinine clearance 47 COVID-negative Continue cefepime every 8 hours Per pulmonology, patient will need to be on 2 weeks of IV cefepime. PICC line ordered. Failed outpatient antibiotic (ciprofloxacin) therapy. Has a history of fluoroquinolone resistant Pseudomonas. Sputum culture from 10/29 sensitive to cefepime but resistant to Levaquin Was started on nebulized tobramycin by pulmonology. Patient will need to be discharged on nebulized tobramycin. She will need to be on this for 28 days Continue acetylcysteine, hypertonic saline Continue flutter valve, incentive spirometry Ipratropium nebs as needed Do not use albuterol nebulized due to allergy/paradoxic reaction CT chest findings reviewed. Hope to discharge to nursing home facility soon (2) GERD (gastroesophageal reflux disease): Plan: Continue PPI (3) Atrial fibrillation: Plan: Well-controlled, sinus on admission Continue flecainide/metoprolol No evidence of RVR, patient denies recent episodes of RVR (4) Epilepsy: Plan: Stable, no history of breakthrough seizures in many years Continue Keppra daily home dosing In the past, sleep deprivation has triggered seizures In the past few days, the patient has not been able to sleep because of constant coughing Started her on melatonin and Zyprexa to help her sleep overnight. Spoke to the cloud administrator about her constant coughing. Per cloud administrator, this is to be expected in the setting of bronchiectasis and Pseudomonas pneumonia. Seizure precautions (5) Chronic obstructive pulmonary disease: Plan: Continue Qvar Pulmonology following Nebulizers as noted Flutter valve, symptoms parameters as noted Do not hyper oxygenate due to COPD physiology, goal SPO2 89-94% (6) On home oxygen therapy: Plan: Continue oxygen as noted Plan DVT prophylaxis: Continue apixaban Diet: Heart healthy Disposition: Medical surgical CODE STATUS DNR/DNI Admission and Anticipated Discharge Date Admission Date: October 29, 2022 Subjective Patient slept better overnight. Denies chest pain or shortness of breath. Says that her cough is a little bit better today. Review of Systems Review of Systems: All systems reviewed & are unremarkable except as noted in Subjective Physical Exam Physical Exam: General: Awake, conversant Heart: S1, S2/regular rate and rhythm, no murmur rubs or gallops Lungs: Bilateral crackles. Normal effort Abdomen: Soft/nontender/nondistended. No hepatosplenomegaly Extremities: No clubbing/cyanosis. No edema Behavior: Appropriate, cooperative Results & Data Results & Data Vital Signs (Past 12 Hours) Vital Signs Temp Pulse Resp BP Pulse Ox O2 Del Method O2 Flow Rate 11/04/22 14:40 37.1 C 70 18 95/63 L 98 Nasal Cannula 1 11/04/22 11:23 75 16 98 Nasal Cannula 1 11/04/22 10:10 96 Nasal Cannula 2 11/04/22 10:10 87 L Room Air 11/04/22 07:35 Nasal Cannula 2 11/04/22 07:30 36.7 C 62 18 103/67 97 Room Air 11/04/22 07:19 75 17 97 Nasal Cannula 2 11/04/22 07:08 75 18 97 Nasal Cannula 2 Diagnostic Findings Abnormal lab results 11/04/22 11/04/22 Range/Units 08:30 08:30 RBC 3.84 L (4.20-5.40) M/uL Hgb 11.2 L (12.0-16.0) g/dl Hct 35.3 L (37.0-47.0) % MCHC 31.7 L (32.0-36.0) g/dL MPV 9.1 L (9.4-12.4) fL Chloride 96 L (98-107) mmol/L Carbon Dioxide 37 H (21-32) mmol/L BUN/Creatinine Ratio 22.7 H (10-20) Glucose 121 H (70-99(Fasting)) mg/dl Calcium 10.4 H (8.6-10.3) mg/dl PG Care Time/CCT Total # of Minutes Spent Total Time Spent with Patient: Total time spent is greater than 50% in coordination of care (as documented) at patient's floor/unit and/or counseling patient: Coding Level of Care Code 51577 SUB INP/OBS CARE 2/35MIN Diagnoses Pseudomonal pneumonia J15.1 GERD (gastroesophageal reflux disease) K21.9 Atrial fibrillation I48.91 Epilepsy G40.909 Chronic obstructive pulmonary disease J44.9 On home oxygen therapy Z99.81
[2022-11-04] MEDS: OLANZAPINE 2.5 MG TAB PO SCH (20:34)
[2022-11-04] MEDS: SIMVASTATIN 20 MG TAB PO SCH (20:35)
[2022-11-04] MEDS: PARoxetine HCL 20 MG TAB PO SCH (20:35)
[2022-11-05] MEDS: SODIUM CHLOR 7% 4 ML NEB NEB SCH ×2 (07:26→19:26)
[2022-11-05] MEDS: ALBUT/IPRATROP 3MG/0.5MG NEB 3 ML VIAL NEB SCH ×4 (07:26→19:26)
[2022-11-05] MEDS: TOBRAMYCIN SULFATE VIAL INH SCH ×2 (07:26→19:26)
[2022-11-05] MEDS: METOPROLOL TARTRATE 25 MG TAB PO SCH (08:12)
[2022-11-05] MEDS: levETIRAcetam 500 MG TAB PO SCH ×2 (08:12→21:01)
[2022-11-05] MEDS: HEPARIN SOD 5,000 UNIT/0.5 ML VIAL SQ SCH ×2 (08:12→21:00)
[2022-11-05] MEDS: FUROSEMIDE 40 MG TAB PO SCH (08:12)
[2022-11-05] MEDS: CALCIUM 600MG + VIT D 400 IU TAB PO SCH ×2 (08:12→21:00)
[2022-11-05] MEDS: MULTIVITAMIN TAB PO SCH (08:13)
[2022-11-05] MEDS: CHOLECALCIFEROL 5,000 UNITS 125 MCG TAB PO SCH (08:13)
[2022-11-05] MEDS: FLECAINIDE ACETATE 100 MG TABLET PO SCH ×2 (08:13→21:00)
[2022-11-05] MEDS: Cefepime 2,000 MG Extended Infusion IV SCH ×2 (12:07→23:17)
--- NOTE | 2022-11-05 13:21 | Pulmonology Progress Note ---
Date of Service November 05, 2022 Assessment & Plan (1) Acute exacerbation of bronchiectasis: (2) Musculoskeletal chest pain: (3) Pseudomonal pneumonia: (4) On home oxygen therapy: (5) Chronic obstructive pulmonary disease: (6) Insomnia: Plan IMPRESSION: 82-year-old female with a significant past medical history of bronchiectasis and resistant Pseudomonas infection, chronic respiratory failure on 2 L nasal cannula, and COPD who was admitted for initiation of intravenous antibiotic therapy as well as starting nebulized tobramycin therapy. RECOMMENDATION: 1. Bronchiectasis with resistant Pseudomonas aeruginosa infection who failed outpatient antibiotic therapy - * Patient appears to be doing well and is back to her baseline at this time. * Recommend 2-week course of cefepime. * Would recommend completing 28-day course of nebulized tobramycin. * Continue with all home inhalers and treatments (i.e. hypertonic saline nebs, acetylcystine, duonebs, flutter valve, and chest vest). * We can see the patient back in follow-up after completion of her course of antibiotics. 2. COPD - * Continue Qvar inhalers. * Nebulizers. * Continue home oxygen therapy with goal saturation of 88 to 90% Thank you for allowing us to participate in the care of this patient. Pulmonary medicine will sign off of this patient at this time. Admission and Anticipated Discharge Date Admission Date: October 29, 2022 Supervising Physician Co-Signing Physician Notes Patient seen and examined. EMR reviewed. Discussed with GILDARDO. Agree with assessment plan as noted. The patient is showing clinical improvement. She states her sputum is clearing. Would recommend discharge on cefepime for total of 14 days IV therapy. She should continue tobramycin inhaled for 28 days total. She can follow-up with [facility] in [place]. The patient is stable to dismiss once IV antibiotics have been arranged in the outpatient setting. It appears that this is likely most appropriate through a alf facility. Pulmonary will sign off at this point time. Feel free to contact us with questions or concerns Subjective Patient was seen and evaluated bedside today. She complains of aches and pains unrelated to her breathing. She states that her breathing is near its baseline at this time. She has a cough that is productive of green sputum. She is doing well with her nebulizers and antibiotic therapy. Physical Exam Physical Exam: VITAL SIGNS - Vital signs and nursing notes were reviewed. GENERAL - 82-year-old female appearing her stated age who is in no acute distress. Communicates well with provider and answers questions appropriately. NOSE - Midline and without cyanosis. MOUTH/OROPHARYNX - Without perioral cyanosis. Slight irritation to the posterior oropharynx. No exam findings consistent with thrush appreciated. NECK - Neck with FROM. LUNGS - Auscultation reveals coarse breath sounds bilaterally. No wheezes, rales, or rhonchi noted otherwise. CARDIAC - RRR with S1/S2. No murmur, rubs, or gallops appreciated. PSYCH - A&Ox3 and cooperates fully with examiner. Pt is very pleasant and interacts well with examiner. Results & Data Results & Data Vital Signs (Past 12 Hours) Vital Signs Temp Pulse Resp BP Pulse Ox O2 Del Method O2 Flow Rate 11/05/22 10:26 72 20 97 Nasal Cannula 2 11/05/22 08:13 Nasal Cannula 1 11/05/22 07:27 78 18 98 Nasal Cannula 2 11/05/22 07:19 36.4 C L 75 18 136/75 99 Nasal Cannula 2 PG Care Time/CCT Total # of Minutes Spent Total Time Spent with Patient: Total time spent is greater than 50% in coordination of care (as documented) at patient's floor/unit and/or counseling patient: Coding Level of Care Code 80886 SUB INP/OBS CARE 3/50MIN Diagnoses Acute exacerbation of bronchiectasis J47.1 Musculoskeletal chest pain R07.89 Pseudomonal pneumonia J15.1 On home oxygen therapy Z99.81 Chronic obstructive pulmonary disease J44.9 Insomnia G47.00
--- NOTE | 2022-11-05 13:40 | Hospitalist Progress Note ---
Date of Service November 05, 2022 Assessment & Plan (1) Pseudomonal pneumonia: Plan: 82-year-old female admitted for pseudomonal pneumonia requiring IV antibiotics, history of Pseudomonas positive culture with fluoroquinolone resistance Pseudomonal pneumonia, bronchiectasis Prior CT confirmed bronchiectasis, prior positive culture for Pseudomonas No leukocytosis Renal functional with normal baseline, creatinine 0.77 on admission. eGFR 70/creatinine clearance 47 COVID-negative Continue cefepime every 8 hours Per pulmonology, patient will need to be on 2 weeks of IV cefepime. PICC line ordered. Failed outpatient antibiotic (ciprofloxacin) therapy. Has a history of fluoroquinolone resistant Pseudomonas. Sputum culture from 10/29 sensitive to cefepime but resistant to Levaquin Was started on nebulized tobramycin by pulmonology. Patient will need to be discharged on nebulized tobramycin. She will need to be on this for 28 days Continue acetylcysteine, hypertonic saline Continue flutter valve, incentive spirometry Ipratropium nebs as needed Do not use albuterol nebulized due to allergy/paradoxic reaction CT chest findings reviewed. [facility] to detention facility soon Patient says that her cough is finally getting better so that she is able to sleep better (2) GERD (gastroesophageal reflux disease): Plan: Continue PPI (3) Atrial fibrillation: Plan: Well-controlled, sinus on admission Continue flecainide/metoprolol No evidence of RVR, patient denies recent episodes of RVR (4) Epilepsy: Plan: Stable, no history of breakthrough seizures in many years Continue Keppra daily home dosing In the past, sleep deprivation has triggered seizures In the past few days, the patient has not been able to sleep because of constant coughing. Although her cough is finally getting better and she is sleeping better now. She is complaining of jitteriness which could be related to her neb treatments. We will discontinue Zyprexa as she is able to sleep better on her own now. Spoke to the manager fund about her constant coughing. Per manager fund, this is to be expected in the setting of bronchiectasis and Pseudomonas pneumonia. Seizure precautions (5) Chronic obstructive pulmonary disease: Plan: Continue Qvar Pulmonology following Nebulizers as noted Flutter valve, symptoms parameters as noted Do not hyper oxygenate due to COPD physiology, goal SPO2 89-94% (6) On home oxygen therapy: Plan: Continue oxygen as noted Plan DVT prophylaxis: Continue apixaban Diet: Heart healthy Disposition: Medical surgical CODE STATUS DNR/DNI Admission and Anticipated Discharge Date Admission Date: October 29, 2022 Subjective Patient says that her cough is getting better but she is not feeling well at all. She says that she is feeling jittery. She is concerned about this jitteriness because of her history of seizure. She says that she slept better overnight. Review of Systems Review of Systems: All systems reviewed & are unremarkable except as noted in Subjective Physical Exam Physical Exam: General: Awake, conversant Heart: S1, S2/regular rate and rhythm, no murmur rubs or gallops Lungs: Bilateral crackles improving. Normal effort Abdomen: Soft/nontender/nondistended. No hepatosplenomegaly Extremities: No clubbing/cyanosis. No edema Behavior: Appropriate, cooperative Results & Data Results & Data Vital Signs (Past 12 Hours) Vital Signs Temp Pulse Resp BP Pulse Ox O2 Del Method O2 Flow Rate 11/05/22 10:26 72 20 97 Nasal Cannula 2 11/05/22 08:13 Nasal Cannula 1 11/05/22 07:27 78 18 98 Nasal Cannula 2 11/05/22 07:19 36.4 C L 75 18 136/75 99 Nasal Cannula 2 PG Care Time/CCT Total # of Minutes Spent Total Time Spent with Patient: Total time spent is greater than 50% in coordination of care (as documented) at patient's floor/unit and/or counseling patient: Coding Level of Care Code 65718 SUB INP/OBS CARE 2/35MIN Diagnoses Pseudomonal pneumonia J15.1 GERD (gastroesophageal reflux disease) K21.9 Atrial fibrillation I48.91 Epilepsy G40.909 Chronic obstructive pulmonary disease J44.9 On home oxygen therapy Z99.81
[2022-11-05] MEDS: oxyCODONE/ACETAMINOPHEN 5mg/325mg TAB PO PRN (18:23)
[2022-11-05] MEDS: PARoxetine HCL 20 MG TAB PO SCH (21:01)
[2022-11-05] MEDS: SIMVASTATIN 20 MG TAB PO SCH (21:01)
[2022-11-06] MEDS: SODIUM CHLOR 7% 4 ML NEB NEB SCH ×2 (07:17→19:19)
[2022-11-06] MEDS: ALBUT/IPRATROP 3MG/0.5MG NEB 3 ML VIAL NEB SCH ×4 (07:17→19:19)
[2022-11-06] MEDS: TOBRAMYCIN SULFATE VIAL INH SCH ×2 (07:21→19:19)
[2022-11-06] MEDS: CHOLECALCIFEROL 5,000 UNITS 125 MCG TAB PO SCH (08:06)
[2022-11-06] MEDS: CALCIUM 600MG + VIT D 400 IU TAB PO SCH (08:06)
[2022-11-06] MEDS: FLECAINIDE ACETATE 100 MG TABLET PO SCH ×2 (08:06→21:00)
[2022-11-06] MEDS: HEPARIN SOD 5,000 UNIT/0.5 ML VIAL SQ SCH ×2 (08:07→20:59)
[2022-11-06] MEDS: levETIRAcetam 500 MG TAB PO SCH ×2 (08:07→21:00)
[2022-11-06] MEDS: MULTIVITAMIN TAB PO SCH (08:07)
[2022-11-06] MEDS: METOPROLOL TARTRATE 25 MG TAB PO SCH (08:07)
[2022-11-06] MEDS: FUROSEMIDE 40 MG TAB PO SCH (08:07)
[2022-11-06 10:48] LABS: Hematocrit (blood only) 36.6 % (37.0-47.0); Hemoglobin 11.9 g/dl (12.0-16.0); Mean Corpuscular Hemoglobin 29.6 pg (25.0-34.0); Mean Corpuscular Hgb Conc 32.5 g/dL (32.0-36.0); Mean Platelet Volume 9.1 fL (9.4-12.4); Platelet Count 394 K/uL (130-400); RDW Coefficient of Variation 13.7 % (11.5-14.5); Red Blood Count 4.02 M/uL (4.20-5.40); White Blood Count 11.31 K/ul (4.8-10.8)
[2022-11-06 10:57] LABS: Base Excess VBG 16.6 mEq/L; HCO3 VBG 45 mmol/L; Oxygen Saturation VBG < 60.0 %; PCO2 VBG 69 mmHg (38-50); PO2 VBG 27 mmHg; pH VBG 7.42 (7.36-7.41)
[2022-11-06 11:03] LABS: BUN Creatinine Ratio 25.9 (10-20); Calcium 10.6 mg/dl (8.6-10.3); Creatinine Clr Calc Pharmacy 44.6 ml/min; Est GFR (African American) 77.3 ml/min; Est GFR (Non-African American) 66.7 ml/min; Magnesium 1.9 mg/dl (1.7-2.4); Potassium 3.6 mmol/L (3.5-5.1)
[2022-11-06 11:23] LABS: Ferritin 104.7 ng/ml (8-388)
[2022-11-06 12:55] LABS: Albumin Level 3.8 gm/dl (3.4-5.0)
[2022-11-06] MEDS: SODIUM CHLORIDE 0.9% 1000ML 1,000 ML IV SCH (13:14)
[2022-11-06] MEDS: Cefepime 2,000 MG Extended Infusion IV SCH ×2 (13:15→23:57)
[2022-11-06] MEDS: NYSTATIN SUSP 500,000 U/5 ML UDC PO SCH ×2 (15:04→21:01)
--- NOTE | 2022-11-06 15:29 | Hospitalist Progress Note ---
Date of Service November 06, 2022 Assessment & Plan (1) Hypercalcemia: Plan: acute may be combination of volume contraction (has been receiving lasix daily but does not take this at home) + vitamin D supplementation +/- other factors HOLD lasix HOLD vitamin D supplementation HOLD calcium supplementation start isotonic fluids - run 75cc/hr repeat BMP in am along with phos, 25-OH vit D level, ionized calcium, intact PTH level I suspect that her myoclonus and myoclonic jerks are calcium related and not due to her seizure disorder (2) Acute exacerbation of bronchiectasis: Plan: with b/l pseudomonas pneumonia appreciate pulmonary assistance cont IV cefepime cont saline nebs cont inhaled tobramycin nebs BID cont saline nebs BID (3) Pseudomonal pneumonia: Plan: day #9 of 14 of IV cefepime (has been on cefepime since admission on 10/29/22) improving albeit slowly will need to continue tobramycin nebs for total of 4 weeks per pulmonary for cough - add back mucinex BID cont usual inhalers for COPD/bronchiectasis (4) On home oxygen therapy: Plan: typically just at HS will need formal 2-step prior to discharge suspect she will need [id number] o2 upon transition home (5) Chronic obstructive pulmonary disease: Plan: cont pulm toilet, nebs, inhalers, mucolytics 2-step ambulatory O2 test at discharge (6) Insomnia: Plan: cont melatonin (7) GERD (gastroesophageal reflux disease): (8) PAF (paroxysmal atrial fibrillation): Plan: cont flecainide for rhythm control need to clarify but it does not appear she is on chronic Eliquis at this time (9) Seizure disorder: Plan: cont keppra total of 1500mg/day if myoclonus does not improve with correction of high calcium then formally consult neurology, Dr Landers (10) DVT prophylaxis: Plan: heparin SC (11) Candidiasis of mouth and esophagus: Plan: start nystatin solution TID (12) Osteoarthritis: Plan: b/l knees, neck, etc voltaren gel 4gm qid Plan passed PT eval earlier this stay can return home at discharge hopefully next 1-2 days Admission and Anticipated Discharge Date Admission Date: October 29, 2022 Subjective c/o "tremors" and spasms - intermittent, chronic - but much worse last 2-3 days also c/o cough - "fits" of such; when she has cough episodes they can be quite severe states she only uses home O2 at night-time typically reports neck pain and headaches for a few days eating fair confirms she does NOT use lasix on daily basis at home complains of mouth & tongue being very irritated Review of Systems Review of Systems: gen - no fever cv - no chest pain pulm - cough, occasional sputum, +LONG GI - no abd pain or nausea Physical Exam Physical Exam: gen - thin, NAD; sitting in chair by window; some coughing episodes neck - no JVD mouth - irritated, dry, erythematous tongue; mild buccal mucosa white plaques heart - irregular, s1 s2 lungs - diffuse end-exp wheezes b/l; crackles b/l bases; no increased work of breathing abd - soft NT ND BS+ ext - no edema, pulses 2+ b/l neuro - no myoclonus or myoclonic jerks noted during the visit Results & Data Results & Data Vital Signs (Past 12 Hours) Vital Signs Temp Pulse Resp BP Pulse Ox O2 Del Method O2 Flow Rate 11/06/22 15:23 73 18 94 Nasal Cannula 1 11/06/22 08:07 Nasal Cannula 1 11/06/22 07:35 36.5 C 83 18 158/67 H 92 Nasal Cannula 1 11/06/22 07:23 85 18 92 Nasal Cannula 1 Laboratory Results Laboratory Results - last 24 hr 11/06/22 11/06/22 11/06/22 10:26 10:26 10:26 WBC 11.31 H RBC 4.02 L Hgb 11.9 L Hct 36.6 L MCV 91.0 MCH 29.6 MCHC 32.5 RDW Std Deviation 46.0 RDW Coeff of Jarad 13.7 Plt Count 394 MPV 9.1 L VBG pH VBG pCO2 VBG pO2 VBG HCO3 VBG O2 Saturation VBG Base Excess Sodium 140 Potassium 3.6 Chloride 94 L Carbon Dioxide 38 H Anion Gap 8 BUN 21 Creatinine 0.81 Est Cr Clr Drug Dosing 44.6 Est GFR ( Amer) 77.3 Est GFR (Non-Af Amer) 66.7 BUN/Creatinine Ratio 25.9 H Glucose 135 H Calcium 10.6 H Magnesium 1.9 Iron 110 TIBC 310 Unsaturated IBC 200 Transferrin % Sat 35 Ferritin 104.7 Albumin 3.8 Vitamin B12 653 TSH 04/25/23 04/25/23 10:26 10:26 WBC RBC Hgb Hct MCV MCH MCHC RDW Std Deviation RDW Coeff of Jarad Plt Count MPV VBG pH 7.42 H VBG pCO2 69 H VBG pO2 27 VBG HCO3 45 VBG O2 Saturation < 60.0 VBG Base Excess 16.6 Sodium Potassium Chloride Carbon Dioxide Anion Gap BUN Creatinine Est Cr Clr Drug Dosing Est GFR ( Amer) Est GFR (Non-Af Amer) BUN/Creatinine Ratio Glucose Calcium Magnesium Iron TIBC Unsaturated IBC Transferrin % Sat Ferritin Albumin Vitamin B12 TSH 1.126 PG Care Time/CCT Total # of Minutes Spent Total Time Spent with Patient: Total time spent is greater than 50% in coordination of care (as documented) at patient's floor/unit and/or counseling patient: Coding Level of Care Code 44897 SUB INP/OBS CARE 3/50MIN Diagnoses Hypercalcemia E83.52 Acute exacerbation of bronchiectasis J47.1 Pseudomonal pneumonia J15.1 On home oxygen therapy Z99.81 Chronic obstructive pulmonary disease J44.9 Insomnia G47.00 GERD (gastroesophageal reflux disease) K21.9 PAF (paroxysmal atrial fibrillation) I48.0 Seizure disorder G40.909 DVT prophylaxis Z29.9 Candidiasis of mouth and esophagus B37.81; B37.0 Osteoarthritis M19.90
[2022-11-06] MEDS ORDERED: guaiFENesin 600 MG TABCR PO STA (15:58)
[2022-11-06] MEDS: DICLOFENAC SOD 1% GEL 100 GM TUBE EXT SCH ×2 (17:39→20:59)
[2022-11-06] MEDS: SIMVASTATIN 20 MG TAB PO SCH (21:00)
[2022-11-06] MEDS: PARoxetine HCL 20 MG TAB PO SCH (21:01)
[2022-11-06] MEDS: guaiFENesin 600 MG TABCR PO SCH (21:04)
[2022-11-07] MEDS: ALBUT/IPRATROP 3MG/0.5MG NEB 3 ML VIAL NEB SCH ×4 (07:11→19:18)
[2022-11-07] MEDS: SODIUM CHLOR 7% 4 ML NEB NEB SCH ×2 (07:11→19:18)
[2022-11-07] MEDS: TOBRAMYCIN SULFATE VIAL INH SCH ×2 (07:11→19:54)
[2022-11-07] MEDS: FLECAINIDE ACETATE 100 MG TABLET PO SCH ×2 (08:48→20:42)
[2022-11-07] MEDS: guaiFENesin 600 MG TABCR PO SCH ×2 (08:49→20:41)
[2022-11-07] MEDS: DICLOFENAC SOD 1% GEL 100 GM TUBE EXT SCH ×4 (08:50→20:41)
[2022-11-07] MEDS: HEPARIN SOD 5,000 UNIT/0.5 ML VIAL SQ SCH (08:50)
[2022-11-07] MEDS: levETIRAcetam 500 MG TAB PO SCH ×2 (08:52→20:42)
[2022-11-07] MEDS: MULTIVITAMIN TAB PO SCH (08:53)
[2022-11-07] MEDS: METOPROLOL TARTRATE 25 MG TAB PO SCH (08:53)
[2022-11-07] MEDS: NYSTATIN SUSP 500,000 U/5 ML UDC PO SCH ×3 (08:54→20:45)
[2022-11-07 09:46] LABS: BUN Creatinine Ratio 27.8 (10-20); Calcium 9.3 mg/dl (8.6-10.3); Creatinine Clr Calc Pharmacy 45.8 ml/min; Est GFR (African American) 79.7 ml/min; Est GFR (Non-African American) 68.7 ml/min; Phosphorus 3.1 mg/dl (2.5-4.9); Potassium 3.8 mmol/L (3.5-5.1)
[2022-11-07] MEDS: SODIUM CHLORIDE 0.9% 1000ML 1,000 ML IV SCH ×2 (10:03→18:08)
[2022-11-07] MEDS: oxyCODONE/ACETAMINOPHEN 5mg/325mg TAB PO PRN (10:14)
[2022-11-07] MEDS: Cefepime 2,000 MG Extended Infusion IV SCH ×2 (12:34→23:55)
--- NOTE | 2022-11-07 16:43 | Hospitalist Progress Note ---
Date of Service November 07, 2022 Assessment & Plan (1) Hypercalcemia: Plan: acute resolved with IV fluids overnight can d/c fluids suspect the acute rise was due to combination of volume contraction (has been receiving lasix daily but does not take this at home) +/- vitamin D supplementation stopped lasix of note -- phos, 25-OH vit D level, ionized calcium, intact PTH level all wnl at discharge will lower vit D supplement dose since vit D level is wnl I suspect that her myoclonus and myoclonic jerks were calcium related and not due to her underlying seizure disorder as the jerks improved as the calcium normalized (2) Acute exacerbation of bronchiectasis: Plan: with b/l pseudomonas pneumonia appreciate pulmonary assistance cont IV cefepime - day #10 (first day of Rx was 10/29/22) - planning 14 days of such cont saline nebs cont inhaled tobramycin nebs BID - pulmonary advises a total of 28 day course; has received 9 doses to date since initiation on 11/01/22 cont chest PT with vibration vest cont other supportive care measures (3) Pseudomonal pneumonia: Plan: day #10 of 14 of IV cefepime (has been on cefepime since admission on 10/29/22) improving albeit slowly will need to continue tobramycin nebs for total of 4 weeks per pulmonary (see #2 above) cont usual inhalers for COPD/bronchiectasis repeat a 2-view cxr in am for stability (4) On home oxygen therapy: Plan: typically just at HS; now requiring around the clock will need formal 2-step when at [facility] (5) Chronic obstructive pulmonary disease: Plan: cont pulm toilet, nebs, inhalers, mucolytics 2-step ambulatory O2 test will be needed while at SNF prior to returning to independent living (6) Insomnia: Plan: cont melatonin (7) GERD (gastroesophageal reflux disease): (8) PAF (paroxysmal atrial fibrillation): Plan: cont flecainide for rhythm control cont Eliquis 5mg BID (9) Seizure disorder: Plan: cont keppra total of 1500mg/day patient & her daughter request consultation with Dr Landers who knows her well from neurology clinic formal consult placed to Dr Landers; he will see her tomorrow for any other recs of note - myoclonic jerks improved with normalization of her high calcium level I have not seen any jerks over 30-40 minutes of bedside visits last 2 days (10) DVT prophylaxis: Plan: resume eliquis stop heparin SC (11) Candidiasis of mouth and esophagus: Plan: cont nystatin solution TID add nystatin ointment for angular cheilitis TID (12) Osteoarthritis: Plan: b/l knees, neck, etc voltaren gel 4gm qid Plan did well with PT/OT earlier this stay patient to go to SNF portion at [facility] due to ongoing Rx for pseudomonas infection (needs IV cefepime, etc) extensively updated pt's daughter by phone this evening care d/w Dr Landers from neurology anticipate d/c to [place] tomorrow Admission and Anticipated Discharge Date Admission Date: October 29, 2022 Subjective patient states that myoclonus has improved over the last 24 hours had a "few episodes" this am but otherwise nothing significant she is eating well cough is at baseline - no better or worse than her typical, chronic cough sputum production today is less than usual but during the visit she coughed up a large amount of green sputum (she states that even when she is feeling "well" she has green sputum production) no dyspnea at rest headaches improved today mouth soreness feels better no other new complaints Review of Systems Review of Systems: gen - no fevers cv - no chest pain pulm - cough, congestion, wheezing, sputum production; no dyspnea at rest GI - no abd pain or N/V Physical Exam Physical Exam: gen - thin, NAD; sitting in chair; coughing throughout the visit; 1 episode with green sputum neck - no JVD mouth - improved buccal mucosa white plaques; angular cheilitis b/l lips heart - irregular, s1 s2, no murmur lungs - diffuse end-exp wheezes b/l; crackles b/l bases; no increased work of breathing; airation fair abd - soft NT ND BS+ ext - no edema, pulses 2+ b/l neuro - no myoclonus or myoclonic jerks noted during the visit again today psych - a/o x 3 Results & Data Results & Data Vital Signs (Past 12 Hours) Vital Signs Temp Pulse Pulse Resp BP Pulse Ox O2 Del Method 11/07/22 15:48 36.4 C L 58 L 18 94/60 L 100 Nasal Cannula 11/07/22 15:35 61 18 95 Nasal Cannula 11/07/22 11:36 73 18 96 Nasal Cannula 11/07/22 08:34 Nasal Cannula 11/07/22 07:49 36.6 C 61 16 106/62 100 Nasal Cannula 11/07/22 07:15 78 18 98 Nasal Cannula O2 Flow Rate 11/07/22 15:48 1 11/07/22 15:35 1 11/07/22 11:36 1 11/07/22 08:34 2 11/07/22 07:49 2 11/07/22 07:15 2 Laboratory Results Laboratory Results - last 24 hr 11/07/22 11/07/22 11/07/22 06:53 06:53 06:53 Sodium 140 Potassium 3.8 Chloride 100 Carbon Dioxide 35 H Anion Gap 5 BUN 22 Creatinine 0.79 Est Cr Clr Drug Dosing 45.8 Est GFR ( Amer) 79.7 Est GFR (Non-Af Amer) 68.7 BUN/Creatinine Ratio 27.8 H Glucose 101 H Calcium 9.3 Ionized Calcium Phosphorus 3.1 25-OH Vitamin D Total 48.2 PTH Intact 29.7 11/07/22 06:53 Sodium Potassium Chloride Carbon Dioxide Anion Gap BUN Creatinine Est Cr Clr Drug Dosing Est GFR ( Amer) Est GFR (Non-Af Amer) BUN/Creatinine Ratio Glucose Calcium Ionized Calcium 1.22 Phosphorus 25-OH Vitamin D Total PTH Intact PG Care Time/CCT Total # of Minutes Spent Total Time Spent with Patient: Total time spent is greater than 50% in coordination of care (as documented) at patient's floor/unit and/or counseling patient: Coding Level of Care Code 90740 SUB INP/OBS CARE 3/50MIN Diagnoses Hypercalcemia E83.52 Acute exacerbation of bronchiectasis J47.1 Pseudomonal pneumonia J15.1 On home oxygen therapy Z99.81 Chronic obstructive pulmonary disease J44.9 Insomnia G47.00 GERD (gastroesophageal reflux disease) K21.9 PAF (paroxysmal atrial fibrillation) I48.0 Seizure disorder G40.909 DVT prophylaxis Z29.9 Candidiasis of mouth and esophagus B37.81; B37.0 Osteoarthritis M19.90
[2022-11-07] MEDS: POLYETHYLENE (MIRALAX) 17 GM PACK PO SCH (18:26)
[2022-11-07] MEDS: NYSTATIN OINT 15 GM TUBE EXT SCH ×2 (18:27→20:45)
[2022-11-07] MEDS: APIXABAN 5 MG TABLET PO SCH (20:46)
[2022-11-07] MEDS: SIMVASTATIN 20 MG TAB PO SCH (20:46)
[2022-11-07] MEDS: PARoxetine HCL 20 MG TAB PO SCH (20:47)
[2022-11-08] MEDS: ALBUT/IPRATROP 3MG/0.5MG NEB 3 ML VIAL NEB SCH ×4 (07:09→19:07)
[2022-11-08] MEDS: SODIUM CHLOR 7% 4 ML NEB NEB SCH ×2 (07:09→19:07)
[2022-11-08 07:35] LABS: Hematocrit (blood only) 32.6 % (37.0-47.0); Hemoglobin 10.4 g/dl (12.0-16.0); Mean Corpuscular Hemoglobin 29.9 pg (25.0-34.0); Mean Corpuscular Hgb Conc 31.9 g/dL (32.0-36.0); Mean Corpuscular Volume 93.7 fL (80.0-100.0); Mean Platelet Volume 9.2 fL (9.4-12.4); Platelet Count 270 K/uL (130-400); RDW Coefficient of Variation 13.5 % (11.5-14.5); Red Blood Count 3.48 M/uL (4.20-5.40)
[2022-11-08 07:55] LABS: BUN Creatinine Ratio 26.3 (10-20); Calcium 9.4 mg/dl (8.6-10.3); Creatinine Clr Calc Pharmacy 47.6 ml/min; Est GFR (African American) 83.5 ml/min; Potassium 4.2 mmol/L (3.5-5.1)
[2022-11-08] MEDS: DICLOFENAC SOD 1% GEL 100 GM TUBE EXT SCH ×4 (08:12→21:01)
[2022-11-08] MEDS: APIXABAN 5 MG TABLET PO SCH ×2 (08:22→21:01)
[2022-11-08] MEDS: FLECAINIDE ACETATE 100 MG TABLET PO SCH ×2 (08:23→21:03)
[2022-11-08] MEDS: guaiFENesin 600 MG TABCR PO SCH ×2 (08:24→21:02)
[2022-11-08] MEDS: levETIRAcetam 500 MG TAB PO SCH (08:25)
[2022-11-08] MEDS: MULTIVITAMIN TAB PO SCH (08:26)
[2022-11-08] MEDS: NYSTATIN SUSP 500,000 U/5 ML UDC PO SCH ×3 (08:27→21:03)
[2022-11-08] MEDS: NYSTATIN OINT 15 GM TUBE EXT SCH ×3 (08:27→21:04)
[2022-11-08] MEDS: POLYETHYLENE (MIRALAX) 17 GM PACK PO SCH (08:30)
--- NOTE | 2022-11-08 10:44 | XRay Report ---
XR chest 2V PA/lateral CLINICAL HISTORY: b/l basilar pneumonia, interval change COMPARISON STUDY: Chest radiograph and chest CT November 01, 2022. FINDINGS: Bilateral shoulder arthroplasties are incidentally noted. Cardiomediastinal silhouette is s table. There is no evidence for pulmonary edema. There is no pneumothorax. No definite pleural effusi on. Bibasilar airspace opacities persist. There is left lower lobe volume loss. IMPRESSION: No significant change in bibasilar airspace opacities with left lower lobe volume loss. R ight lower lobe opacity favors pneumonia. Left lower lobe opacity could reflect pneumonia or atelecta sis. ACT 112: Negative or not required by law. Electronically signed by: Poli Warren M.D. 11/08/2022 10:42 AM
[2022-11-08] MEDS: Cefepime 2,000 MG Extended Infusion IV SCH ×2 (12:33→23:30)
--- NOTE | 2022-11-08 12:55 | Neurology Consultation ---
Date of Consultation November 08, 2022 Assessment & Plan (1) Epilepsy: Plan 82-year-old female with a history of juvenile myoclonic epilepsy that has typically been very stable on levetiracetam although she has been experiencing an increase in myoclonic jerking in the context of her current hospitalization for treatment of Pseudomonas pneumonia for which she has been receiving IV cefepime and inhaled tobramycin. She has had mild hypercalcemia as well. Hypercalcemia has been associated with myoclonus. (I do note, however, that hypercalcemia does not typically lead to seizures as it typically causes reduced neuronal membrane excitability.) Cefepime may also lower the seizure threshold. At this point, I have recommended increasing her dosage of levetiracetam to 1000 mg twice daily. I do not think she would require additional specific neurological testing at this time such as up-to-date EEG or MRI as she appears to be clinically stable. May follow-up with me in clinic, I believe she has a follow-up appointment scheduled next month. Please call with any questions. History of Present Illness Reason for Consultation: History of epilepsy, myoclonus Requesting Physician: Dr. Alonso Attending Physician: Sohan Alonso MD History of Present Illness The patient is an 82-year-old female who is known to me, she has a history of juvenile myoclonic epilepsy and was last seen in neurology clinic for this issue April 13, 2022. She has had a few generalized tonic-clonic seizures over her lifetime, last convulsive episode occurred in 2019. 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 History also notable for atrial fibrillation, on Eliquis. Her LENA have been stable at her last appointment with Keppra, she was to continue with this medication, she typically takes 1000 mg in the morning, 500 mg at bedtime. I see that she was admitted to [facility] on October 29, 2022 for evaluation and management of Pseudomonas pneumonia requiring IV antibiotics, resistant to fluoroquinolone. In the context of her current hospitalization, she had been exhibiting intermittent myoclonic jerking of the limbs, potentially worrisome for breakthrough seizure activity. 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 She has not had any observed generalized tonic- clonic seizures, she has continued with her usual Keppra dosing regimen. She has been receiving IV cefepime as well as inhaled tobramycin for management of her pneumonia. Her admission has been complicated by hypercalcemia. It has been noted that her myoclonic jerking has improved with improvement of this metabolic derangement. Again, patient known to me and patient and family had requested neurological consultation in the context of her current hospitalization. Looks like there are potential plans for discharge as she has been clinically improved in the context of her pneumonia. No specific neuroimaging such as CT of the head or brain MRI has been completed in the context of her current hospitalization as it has not really been necessary. She has not had any recent levetiracetam levels drawn, but again, not specifically necessary in the context of her current hospitalization. Currently, the patient reports feeling improved although she does admit to occasional twitching or jerking of the limbs potentially consistent with breakthrough myoclonic jerking. She does admit that these abnormal movements tend to occur more so in the morning. She denies other specific neurologic symptoms, no headache, vertigo, dysarthria, dysphagia, focal weakness or sensory loss. She does have chronic cervicalgia and low back pain. Allergies Allergy/AdvReac Type Severity Reaction Status Date / Time nitrofurantoin Allergy Intermediate Hives Verified 08/29/22 09:24 [From Macrodantin] Sulfa (Sulfonamide Allergy Intermediate SWELLS Verified 08/29/22 09:24 Antibiotics) Cephalosporins AdvReac Intermediate ACUTE Verified 08/29/22 09:24 GASTRITIS erythromycin base AdvReac Intermediate ACUTE Verified 08/29/22 09:24 GASTRITIS (ILOSONE) Home Medications Medication Instructions Recorded Confirmed Type calcium carbonate 500 mg calcium 1,000 mg PO BID ##0 12/01/08 10/23/22 History (1,250 mg) chewable tablet flecainide 50 mg tablet 50 mg PO Q12H #0 tabs 07/18/17 10/23/22 History paroxetine HCl 20 mg tablet 20 mg PO DAILY #0 tabs 07/18/17 10/23/22 History cholecalciferol (vitamin D3) 125 5,000 unit PO DAILY 05/07/18 10/23/22 History mcg (5,000 unit) tablet (Vitamin D3) clotrimazole-betamethasone 1 1 appln topical BID PRN 05/05/19 10/23/22 History %-0.05 % topical cream lidocaine-prilocaine 2.5 %-2.5 % topical 05/05/19 10/23/22 History topical cream simvastatin 20 mg tablet 20 mg PO QPM 05/05/19 10/23/22 History metoprolol tartrate 25 mg tablet 25 mg PO DAILY 08/07/19 10/23/22 History guaifenesin 600 mg tablet, 600 mg PO BID PRN cough #60 tabs 05/02/20 10/23/22 Rx extended release 12 hr (Mucinex) zjjtjzok-kcs-bxwix acid 33 1 tab PO DAILY 08/02/20 10/23/22 History mcg-biotin 5,000 mcg-lutein 250 mcg tablet (Cumming Matrix 5000 Complete) apixaban 5 mg tablet (Eliquis) 5 mg PO BID 01/18/21 10/23/22 History ipratropium bromide 0.02 % See Rx Instructions .Route 10/23/21 10/23/22 Rx solution for inhalation .COMPLEX #900 mL sodium chloride 7 % for 4 ml inhalation BID 90 days #180 02/08/22 10/23/22 Rx nebulization vials Flutter Valve #1 ea 02/27/22 10/23/22 Rx methocarbamol 500 mg tablet 500 mg PO QPM PRN muscle spasm #90 04/13/22 10/23/22 Rx tabs beclomethasone dipropionate 80 1 inh inhalation BID PRN 04/19/22 10/23/22 Rx mcg/actuation HFA breath activated Bronchiectasis #3 Inhalers aerosol (Qvar RediHaler) acetylcysteine 200 mg/mL (20 %) See Rx Instructions .Route 06/21/22 10/23/22 Rx solution .COMPLEX #1,500 mL furosemide 40 mg tablet 40 mg PO DAILY 08/29/22 10/23/22 History levetiracetam 1,000 mg tablet 1,000 mg PO .COMPLEX 08/29/22 10/23/22 History (Keppra) ipratropium 0.5 mg-albuterol 3 mg 3 ml inhalation Q3H PRN shortness 11/02/22 Rx (2.5 mg base)/3 mL nebulization of breath or wheezing #180 mL soln tobramycin 300 mg/5 mL in 0.225 % 300 mg (5 mL) inhalation BID 28 11/07/22 Rx sodium chloride for nebulization days #280 mL Patient History Medical History Acute exacerbation of bronchiectasis Atrial fibrillation Bronchiectasis Chronic obstructive pulmonary disease Epilepsy GERD (gastroesophageal reflux disease) Hyperlipidemia Insomnia Interstitial cystitis Musculoskeletal chest pain On home oxygen therapy 2L/min HS Osteoarthritis Pseudomonal pneumonia Seizure Surgical History History of adenoidectomy History of bunionectomy bilateral History of carpal tunnel release of both wrists History of colonoscopy History of cystoscopy History of endoscopic sinus surgery History of lobectomy of lung LLL History of tonsillectomy History of total hip arthroplasty bilateral History of total shoulder replacement bilateral Hx of hysterectomy Social History Smoking Status: Never smoker Do You Dip or Chew Tobacco: No; Hx Alcohol Use: Yes Alcohol type: wine Hx Substance Use: No Preferred Language: Irish Communication Ability: Effective Consulting Database Administrator Required: No Beliefs That Will Affect Care: None Current Living Situation: Spouse Feels Safe at Home: Yes Assistive Devices: Cane and Oxygen - at Night Review of Systems Constitutional: no fever and no chills Eyes: no blind spots and no diplopia Ear, Nose, Mouth, Throat: no hearing loss Respiratory: + cough and + dyspnea Cardiovascular: no chest pain Gastrointestinal: no nausea and no vomiting Genitourinary: no dysuria Musculoskeletal: + back pain and + neck pain Integumentary: no rash and no lesions Neurologic: as per Subjective / HPI Psychiatric: no depression and no anxiety Hematologic / Lymphatic: no easy bleeding and no easy bruising Exam (Neuro) Constitutional: well developed and well nourished; no acute distress Eyes: normal visual garrett by confrontation, PERRL, normal accommodation and EOM intact bilaterally; no fundoscopic abnormality, no nystagmus and no papilledema Cardiovascular: Vessels: normal carotid upstroke; no carotid bruit Neurologic: Oriented to:: Person, Place and Time Memory: Short Term Intact and Remote Intact Attention: Span Intact and Concentration Intact Language: Naming Objects and Repeating Phrases Speech Fluency: negative Dysarthria Speech Aphasia: negative Aphasia Fund of Knowledge: Current Events, Past History and Vocabulary Cranial Nerves: Normal II (Visual garrett full to confrontation, visual acuity normal), III, IV, (Pupils equal round reactive to light and accommodation, eye movements normal), V (Facial sensation intact), VII (There is no facial droop or weakness), VIII (Hearing intact), IX, X (Palate elevates to midline), XI (Shoulder shrug intact) and XII (Tongue protrudes to midline) Motor Strength: Normal Lower Extremities and Normal Upper Extremities; negative Pronator Drift Motor Tone: Normal Lower Extremities and Normal Upper Extremities Muscle Bulk/Involuntary Movements: No Involuntary Movements; negative Muscle Atrophy Sensation: Light Touch Intact, Pain/Temperature Intact, Vibration Intact and Proprioception Intact Coordination: Normal; negative Limited Balance, Dysdiadochokinesia, Finger-Nose Abnormal or Heel-Thomason Abnormal Deep Tendon Reflexes: Rt Triceps: 2+, Lt Triceps: 2+, Rt Biceps: 2+, Lt Biceps: 2+, Rt Brachioradialis: 2+, Lt Brachioradialis: 2+, Rt Patellar: 2+, Lt Patellar: 2+, Rt Ankle: 2+ and Lt Ankle: 2+ Special Tests: negative Babinski Present Details: Gait not tested in the context of patient's current medical status Results & Data Vital Signs (Past 12 Hours) Vital Signs Temp Pulse Pulse Resp BP Pulse Ox O2 Del Method 11/08/22 11:15 77 18 94 Room Air 11/08/22 07:55 36.3 C L 86 18 123/72 93 Nasal Cannula 11/08/22 08:15 Nasal Cannula 11/08/22 07:10 87 20 98 Nasal Cannula O2 Flow Rate 11/08/22 11:15 11/08/22 07:55 1 11/08/22 08:15 1 11/08/22 07:10 2 Laboratory Results WBC 6.40, hemoglobin 10.4, hematocrit 32.6, platelet count 270, sodium 140, potassium 4.2, BUN 20, creatinine 0.76, glucose 95, calcium 9.4, TSH 1.126, vitamin B12 653, vitamin D 48.2, PTH 29.7. Chest x-ray completed today, no significant change in bibasilar airspace opaci ties with left lower lobe volume loss, right lower lobe opacity favors pneumonia, left lower lobe opacity could reflect pneumonia or atelectasis. Electrocardiogram completed October 29, 2022 revealed sinus bradycardia with marked sinus arrhythmia and PVCs PG Care Time/CCT Total # of Minutes Spent Total Time Spent with Patient: Total time spent is greater than 50% in coordination of care (as documented) at patient's floor/unit and/or counseling patient: 60 minutes Coding Level of Care Code 48773 INT INP/OBS CARE 2/55MIN Diagnoses Epilepsy G40.909
--- NOTE | 2022-11-08 19:59 | Hospitalist Progress Note ---
Date of Service November 08, 2022 Assessment & Plan (1) Hypercalcemia: Plan: acute resolved suspect the acute rise was due to volume contraction (had been receiving lasix daily but does not take this at home) stopped lasix of note -- phos, 25-OH vit D level, ionized calcium, intact PTH level all wnl at discharge will lower vit D supplement dose since vit D level is wnl I suspect that her myoclonus and myoclonic jerks were largely calcium related and not due to her underlying seizure disorder as the jerks improved as the calcium normalized (2) Acute exacerbation of bronchiectasis: Plan: with b/l pseudomonas pneumonia appreciate pulmonary assistance IMPROVED cont IV cefepime - day #11 (first day of Rx was 10/29/22) - planning 14 days of such cont saline nebs cont inhaled tobramycin nebs BID - pulmonary advises a total of 28 day course; has received 11 doses to date since initiation on 11/01/22 cont chest PT with vibration vest cont other supportive care measures (3) Pseudomonal pneumonia: Plan: day #11 of 14 of IV cefepime (has been on cefepime since admission on 10/29/22) improved will need to continue tobramycin nebs for total of 4 weeks per pulmonary (see #2 above) cont usual inhalers for COPD/bronchiectasis 2-view cxr today stable (4) On home oxygen therapy: Plan: typically just at HS; now requiring around the clock will need formal 2-step when at [facility] (before they d/c her back to independent living) will need [place] O2 for her ride back to [place] (5) Chronic obstructive pulmonary disease: Plan: cont pulm toilet, nebs, inhalers, mucolytics (6) Insomnia: Plan: cont melatonin (7) GERD (gastroesophageal reflux disease): (8) PAF (paroxysmal atrial fibrillation): Plan: cont flecainide for rhythm control cont Eliquis 5mg BID EKG today - NSR w/ ectopy (9) Seizure disorder: Plan: cont keppra but increase to 1000mg BID per recommendations from Dr Landers today this is not for seizures but to help w/ her myoclonus f/u with Dr Landers in office appreciate his consult (10) DVT prophylaxis: Plan: eliquis (11) Candidiasis of mouth and esophagus: Plan: cont nystatin solution TID cont nystatin ointment for angular cheilitis TID (12) Osteoarthritis: Plan: b/l knees, neck, etc voltaren gel 4gm qid Plan patient to go to SNF portion at [facility] due to ongoing Rx for pseudomonas infection (needs IV cefepime, etc) extensively updated pt's daughter by phone yesterday pm care d/w Dr Landers from neurology [facility] Admission and Anticipated Discharge Date Admission Date: October 29, 2022 Subjective patient feeling well still some myoclonic jerks but no worse than prior eating well denies dyspnea at rest or with activity she asks that we keep her hospitalized until tomorrow due to transportation issues (daughter to transport her back to [place]) nurses walked patient in hallway - o2 sats dropped to <88% with walking no new issues Review of Systems Review of Systems: gen - no fevers cv - no chest pain pulm - cough/congestion/wheezing - all at baseline GI - no abd pain/N/V Physical Exam Physical Exam: gen - thin, NAD; sitting in chair; looks good; minimal cough today neck - no JVD mouth - resolved white plaques; angular cheilitis b/l lips heart - irregular, s1 s2, no murmur lungs - mild-moderate end-exp wheezes b/l; crackles b/l bases; no increased work of breathing; airation somewhat better than yesterday abd - soft NT ND BS+ ext - no edema, pulses 2+ b/l neuro - no myoclonus or myoclonic jerks noted during the visit psych - a/o x 3 Results & Data Results & Data Vital Signs (Past 12 Hours) Vital Signs Temp Pulse Pulse Resp BP Pulse Ox O2 Del Method 11/08/22 19:07 80 20 96 Nasal Cannula 11/08/22 15:46 75 18 97 Nasal Cannula 11/08/22 15:18 36.6 C 89 20 123/68 99 Nasal Cannula 11/08/22 11:15 77 18 94 Room Air 11/08/22 08:15 Nasal Cannula O2 Flow Rate 11/08/22 19:07 1 11/08/22 15:46 1 11/08/22 15:18 1 11/08/22 11:15 11/08/22 08:15 1 Laboratory Results Laboratory Results - last 24 hr 11/08/22 11/08/22 07:07 07:07 WBC 6.40 RBC 3.48 L Hgb 10.4 L Hct 32.6 L MCV 93.7 MCH 29.9 MCHC 31.9 L RDW Std Deviation 46.0 RDW Coeff of Jarad 13.5 Plt Count 270 MPV 9.2 L Sodium 140 Potassium 4.2 Chloride 102 Carbon Dioxide 35 H Anion Gap 3 BUN 20 Creatinine 0.76 Est Cr Clr Drug Dosing 47.6 Est GFR ( Amer) 83.5 Est GFR (Non-Af Amer) 72.0 BUN/Creatinine Ratio 26.3 H Glucose 95 Calcium 9.4 PG Care Time/CCT Total # of Minutes Spent Total Time Spent with Patient: Total time spent is greater than 50% in coordination of care (as documented) at patient's floor/unit and/or counseling patient: Coding Level of Care Code 96313 SUB INP/OBS CARE 2/35MIN Diagnoses Hypercalcemia E83.52 Acute exacerbation of bronchiectasis J47.1 Pseudomonal pneumonia J15.1 On home oxygen therapy Z99.81 Chronic obstructive pulmonary disease J44.9 Insomnia G47.00 GERD (gastroesophageal reflux disease) K21.9 PAF (paroxysmal atrial fibrillation) I48.0 Seizure disorder G40.909 DVT prophylaxis Z29.9 Candidiasis of mouth and esophagus B37.81; B37.0 Osteoarthritis M19.90
[2022-11-08] MEDS ORDERED: levETIRAcetam 500 MG TAB PO SCH (21:00)
[2022-11-08] MEDS: SIMVASTATIN 20 MG TAB PO SCH (21:01)
[2022-11-08] MEDS: PARoxetine HCL 20 MG TAB PO SCH (21:02)
--- NOTE | 2022-11-09 05:23 | Electrocardiogram Report ---
Test Reason : Blood Pressure : / mmHG Vent. Rate : 080 BPM Atrial Rate : 080 BPM P-R Int : 204 ms QRS Dur : 124 ms QT Int : 398 ms P-R-T Axes : 072 -45 059 degrees QTc Int : 459 ms Sinus rhythm with frequent Premature ventricular complexes Left anterior fascicular block Left ventricular hypertrophy with QRS widening Abnormal ECG When compared with ECG of 29-OCT-2022 12:06, Premature ventricular complexes are now Present Left anterior fascicular block is now Present Minimal criteria for Septal infarct are no longer Present T wave inversion no longer evident in Inferior leads Confirmed by Kelvin Hopson ([id number]) on 11/09/2022 5:23:03 AM Referred By: Jake Garcia Confirmed By:Kelvin Hopson
[2022-11-09] MEDS: SODIUM CHLOR 7% 4 ML NEB NEB SCH (07:18)
[2022-11-09] MEDS: ALBUT/IPRATROP 3MG/0.5MG NEB 3 ML VIAL NEB SCH ×2 (07:18→11:34)
[2022-11-09 08:14] LABS: Hematocrit (blood only) 33.1 % (37.0-47.0); Hemoglobin 10.4 g/dl (12.0-16.0); Mean Corpuscular Hemoglobin 29.3 pg (25.0-34.0); Mean Corpuscular Hgb Conc 31.4 g/dL (32.0-36.0); Mean Corpuscular Volume 93.2 fL (80.0-100.0); Mean Platelet Volume 9.1 fL (9.4-12.4); Platelet Count 290 K/uL (130-400); RDW Coefficient of Variation 13.7 % (11.5-14.5); RDW Standard Deviation 46.1 fL (36.4-46.3); Red Blood Count 3.55 M/uL (4.20-5.40); White Blood Count 5.62 K/ul (4.8-10.8)
[2022-11-09 08:30] LABS: Creatinine Clr Calc Pharmacy 52.4 ml/min; Est GFR (African American) 92.6 ml/min; Est GFR (Non-African American) 79.9 ml/min
[2022-11-09] MEDS: APIXABAN 5 MG TABLET PO SCH (09:07)
[2022-11-09] MEDS: DICLOFENAC SOD 1% GEL 100 GM TUBE EXT SCH ×2 (09:08→13:26)
[2022-11-09] MEDS: FLECAINIDE ACETATE 100 MG TABLET PO SCH (09:09)
[2022-11-09] MEDS: guaiFENesin 600 MG TABCR PO SCH (09:09)
[2022-11-09] MEDS: MULTIVITAMIN TAB PO SCH (09:11)
[2022-11-09] MEDS: NYSTATIN SUSP 500,000 U/5 ML UDC PO SCH ×2 (09:11→13:27)
[2022-11-09] MEDS: NYSTATIN OINT 15 GM TUBE EXT SCH ×2 (09:13→13:27)
[2022-11-09] MEDS: POLYETHYLENE (MIRALAX) 17 GM PACK PO SCH (09:13)
[2022-11-09] MEDS: levETIRAcetam 500 MG TAB PO SCH (11:11)
--- NOTE | 2022-11-09 12:37 | Discharge Summary ---
Date of Service November 09, 2022 Admission HPI Per Admitting Provider History is seen at the bedside following direct admission. 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 She reports that for many months she has had a chronic productive cough which is really never improved and associated shortness of breath. She does not have chest pain, chest pressure associated with this. She does have a history of A-fib on anticoagulation, denies bleeding problems. She is in sinus on arrival, reports that flecainide and metoprolol do well for her and she has not had episodes of syncope. She was seen by pulmonology for outpatient follow-up and sputum was consistent with Pseudomonas, however sensitivity testing was not available at that time and patient continued to have symptoms despite ciprofloxacin treatment. She has had progressively increasing shortness of breath, cough, and dark green/yellow sputum production. Medical History: Reviewed Medications: Reviewed Surgical History: Reviewed Family history: Reviewed Allergies: Reviewed Social History: Reviewed Code Status:DNR/DNI Discharge Exam gen - thin, NAD; sitting in chair; looks good; minimal cough today neck - no JVD mouth - resolved white plaques; angular cheilitis b/l lips heart - irregular, s1 s2, no murmur lungs - mild-moderate end-exp wheezes b/l; crackles b/l bases; no increased work of breathing; airation somewhat better than yesterday abd - soft NT ND BS+ ext - no edema, pulses 2+ b/l neuro - no myoclonus or myoclonic jerks noted during the visit psych - a/o x 3 Discharge Data Allergies Allergy/AdvReac Type Severity Reaction Status Date / Time nitrofurantoin Allergy Intermediate Hives Verified 08/29/22 09:24 [From Macrodantin] Sulfa (Sulfonamide Allergy Intermediate SWELLS Verified 08/29/22 09:24 Antibiotics) Cephalosporins AdvReac Intermediate ACUTE Verified 08/29/22 09:24 GASTRITIS erythromycin base AdvReac Intermediate ACUTE Verified 08/29/22 09:24 GASTRITIS (ILOSONE) Consultations 10/29/22 12:58 Consult Pulmonology Routine 11/07/22 16:39 Consult Neurology Routine Ordered Studies 11/01/22 12:47 CT chest diagnostic wo con Urgent Hospital Course (1) Hypercalcemia: acute resolved suspect the acute rise was due to volume contraction (had been receiving lasix daily but does not take this at home) stopped lasix of note -- phos, 25-OH vit D level, ionized calcium, intact PTH level all wnl at discharge will lower vit D supplement dose since vit D level is wnl I suspect that her myoclonus and myoclonic jerks were largely calcium related and not due to her underlying seizure disorder as the jerks improved as the calcium normalized (2) Acute exacerbation of bronchiectasis: with b/l pseudomonas pneumonia appreciate pulmonary assistance IMPROVED cont IV cefepime - day #11 (first day of Rx was 10/29/22) - planning 14 days of such cont saline nebs cont inhaled tobramycin nebs BID - pulmonary advises a total of 28 day course; has received 11 doses to date since initiation on 11/01/22 cont chest PT with vibration vest cont other supportive care measures (3) Pseudomonal pneumonia: day #11 of 14 of IV cefepime (has been on cefepime since admission on 10/29/22) improved will need to continue tobramycin nebs for total of 4 weeks per pulmonary (see #2 above) cont usual inhalers for COPD/bronchiectasis 2-view cxr today stable (4) On home oxygen therapy: typically just at HS; now requiring around the clock will need formal 2-step when at [facility] (before they d/c her back to independent living) will need [place] O2 for her ride back to [place] (5) Chronic obstructive pulmonary disease: cont pulm toilet, nebs, inhalers, mucolytics (6) Insomnia: cont melatonin (7) GERD (gastroesophageal reflux disease): (8) PAF (paroxysmal atrial fibrillation): cont flecainide for rhythm control cont Eliquis 5mg BID EKG today - NSR w/ ectopy (9) Seizure disorder: cont keppra but increase to 1000mg BID per recommendations from Dr Landers today this is not for seizures but to help w/ her myoclonus f/u with Dr Landers in office appreciate his consult (10) DVT prophylaxis: eliquis (11) Candidiasis of mouth and esophagus: cont nystatin solution TID cont nystatin ointment for angular cheilitis TID (12) Osteoarthritis: b/l knees, neck, etc voltaren gel 4gm qid Plan patient to go to SNF portion at [facility] due to ongoing Rx for pseudomonas infection (needs IV cefepime, etc) extensively updated pt's daughter by phone yesterday pm care d/w Dr Landers from neurology anticipate d/c to [facility] work aware Discharge Plan Discharge Items Patient Disposition: Transfer Half-Way Fac Reason For Visit: PNEUMONIA Discharge Diagnosis: 1. pseudomonas pneumonia - resolving 2. chronic bronchiectasis 3. seizure disorder 4. chronic myoclonus 5. hypercalcemia - resolved 6. history of atrial fibrillation 7. thrush - resolving 8. COPD 9. chronic cough 10. chronic hypoxic respiratory failure on night-time O2 11. chronic cervical neck pain Activity: As commented below Activity Comment: gradually increase as tolerated Lifting: Gradually increase as tolerated Bathing Comment: keep left arm IV covered/clean/dry during showers; NO tub baths Exercise/Sports: Gradually increase as tolerated Weightbearing: Full weightbearing Non-emergency contact: Primary Care Provider and [employer] Call non-emergency contact if: you have any medication questions, your symptoms worsen and you have a fever Follow-up/Referrals: Dante Landers MD [Physician] - 12/12/22 3:00 pm (follow-up for seizure disorder/myoclonus) Jerry Simental PA-C [Hospitalist] - 11/13/22 2:30 pm (Follow up in [place] [facility]) Qasim Mccauley [Primary Care Provider] - Diet: Regular Addtl Attending Provider Instructions: You were admitted to [facility] as a direct admission secondary to failed outpatient therapy for bronchiectasis and pneumonia with Pseudomonas aeruginosa. Sputum samples were successfully collected and you were found to have drug- resistant Pseudomonas aeruginosa which does not respond to oral antibiotics. You were started with systemic IV antibiotics (cefepime) and should continue on oral antibiotics for a total of 14 days. You need 3 more days of IV cefepime at time of discharge. You were also started on inhaled tobramycin and should take this twice daily by nebulizer for a total of 28 days. You have 21 days left of the tobramycin course. You should continue faithfully with use of flutter valve and percussion vest to continue to clear secretions. You should also continue with supplemental oxygen to maintain oxygen levels between 88% and 92% due to your COPD. In the past, you have reported an albuterol allergy. Under supervision, you were given albuterol/ipratropium in nebulized form and had no difficulty, adverse reaction, allergy. You will be prescribed DuoNeb solution (albuterol/ipratropium) to be used in your nebulizer. Albuterol has been removed from your allergy list. It was also reported that in the past that you did not tolerate tobramycin nebulizer treatments. You also were tolerating this well in the hospital and this will be continued on discharge as listed above. You can can continue to take your Qvar inhaler as prescribed. A pulmonary follow-up appointment is scheduled for you on November 13, 2022 at 2:30 PM in the [place] office If you have any further questions regarding your pulmonary issues, please feel free to call [phone] and choose option to speak with pulmonary staff. You are also encouraged to use the [facility] patient portal to review your inpatient notes and to contact your provider with questions or concerns. Per your direction on admission, your daughter Janelle Orellana has been updated and kept informed during your hospital stay. You should continue all of your other outpatient medications as directed and contact your primary care provider regarding questions on those medications. Additional information / recommendations -- 1. You were seen by Dr Dante Landers, [facility], for your myoclonus/myoclonic jerks. He INCREASED your keppra to 1000mg twice daily. 2. For stability purposes check CBC and BMP in 4-5 days. Results to medical researcher. 3. Percussion vest therapy twice daily. 4. Flutter valve as much as possible. 5. When Ms Christian is released from the [facility] back to her prior independent living/apartment she will need a formal ambulatory O2 test (2- step) to qualify her for portable oxygen. Return to [facility] or any other hospital if - * you have fevers over 100 degrees * you develop severe diarrhea * you have worsening shortness of breath * you have generalized seizures * your oxygen levels on your finger (pulse ox reading) are consistently less than 88% * any other concerns It was our pleasure to care for you! Please continue to feel better, -Dr Alonso Pending Studies at Discharge: No Studies:: [facility] [address] [place] [address] / Director: Jake Pérez M.D. Clinical Laboratory Report Name: DILCIA CHRISTIAN Acct: [id number] Status: ADM [place] : 1940 [facility] Date: 10/29/22 Age: 82 Sex: F Dis Date: Loc: Medical/Surgical/Ortho [address] [place] [address]/Bed: [facility] Spec: [id number] Collected: 10/29/22-1199 Received: 10/29/22-[address]: Jerry Simental, PA-C Copy To: Jake Garcia MD Source: Sputum, Expectorated OV Order: Ordered: Sputum Cult/Smr Procedure Result Verified Site Gram Stain Final 10/29/22-1421 Gram Stain Result Moderate Polys Few Epithelial Cells Rare Gram Positive Bacilli Rare Gram Positive Cocci Rare Gram Negative Bacilli Sputum Culture Final 11/01/22-1005 Organism 1 Pseudomonas aeruginosa Quantity Moderate Sens Sensitivities to Follow Normal Lori Moderate Normal Lori P aerugino RX [facility] --- --------- Cefepime S 8 Ceftazidime S <=1 Ciprofloxacin R >2 Gentamicin S <=4 Levofloxacin R >4 Meropenem S <=1 Tobramycin S <=4 Pip/Tazo S <=16 S = SENSITIVE I = INTERMEDIATE R = RESISTANT Stand-Alone Forms: My [facility] Skilled Items Patient informed of condition?: Yes DNR: Yes Discharge Level of Care: Skilled Communicable Disease: No Discharge Prognosis: Stable Lines: US Guided Peripheral IV Urinary Catheter: Yes Medications and DC Order Prescriptions: New nystatin 100,000 unit/mL Suspension 5 ml PO TID 7 Days Qty: 105 0RF Rx Instructions: swish/spit polyethylene glycol 3350 [Miralax] 17 gram Powder In Packet 17 g PO DAILY Qty: 30 0RF melatonin 3 mg Tablet 3 mg PO HS PRN (Reason: sleep) Qty: 30 0RF diclofenac sodium [Voltaren Arthritis Pain] 1 % Gel 4 g EXT QID Qty: 1 0RF Rx Instructions: apply 4 grams to a single region - right knee OR left knee OR back of neck - up to 4 x's each day. nystatin 100,000 unit/gram Ointment 1 applic EXT TID 7 Days Qty: 1 0RF Rx Instructions: apply to the corners of the mouth in thin amounts ipratropium-albuterol 0.5 mg-3 mg(2.5 mg base)/3 mL solution for nebulization 3 ml inhalation .qidwa Qty: 90 0RF cefepime 2 gram recon soln 2 g IV Q12H 3 Days Qty: 6 0RF Rx Instructions: give via left upper arm IV. (DME) Oxygen Home Liters Per Minute See Rx Instructions .ROUTE .MEDSUPPLY Qty: 1 0RF Rx Instructions: 2 liters while sleeping, and 2 liters with ambulation. cholecalciferol (vitamin D3) 50 mcg (2,000 unit) capsule 2,000 unit PO DAILY Qty: 30 0RF Continued paroxetine HCl 20 mg Tablet 20 mg PO DAILY Qty: 0 flecainide 50 mg Tablet 50 mg PO Q12H Qty: 0 sodium chloride 7 % solution for nebulization 4 ml inhalation BID 90 Days Qty: 180 1RF clotrimazole-betamethasone 1-0.05 % cream 1 appln TOP BID PRN lidocaine-prilocaine 2.5-2.5 % cream topical simvastatin 20 mg tablet 20 mg PO QPM Silver Matrix 5000 Complete 33-5,000-250 mcg tablet 1 tab PO DAILY methocarbamol 500 mg tablet 500 mg PO QPM PRN (Reason: muscle spasm) Qty: 90 1RF (DME) Flutter Valve Device See Rx Instructions .Route Qty: 1 0RF Rx Instructions: Three times daily and as needed Eliquis 5 mg tablet 5 mg PO BID tobramycin in 0.225 % NaCl 300 mg/5 mL solution for nebulization 300 mg inhalation BID 21 Days Qty: 210 0RF Rx Instructions: separate doses by at least 6 hours To be uses 28 days then off 28 days then repeat 28 days on and 28 days off Changed metoprolol tartrate 25 mg tablet 12.5 mg PO BID Qty: 60 0RF Qvar RediHaler 80 mcg/actuation HFA aerosol breath activated 1 inh INH BID Qty: 3 2RF Rx Instructions: rinse mouth with water after each use levetiracetam [Keppra] 1,000 mg tablet 1,000 mg PO BID Qty: 60 2RF guaifenesin [Mucinex] 600 mg tablet extended release 12hr 600 mg PO BID Qty: 60 3RF Discontinued calcium carbonate 500 mg calcium (1,250 mg) Tablet,Chewable 1,000 mg PO BID Qty: 0 ipratropium bromide 0.02 % solution See Rx Instructions .ROUTE .COMPLEX Qty: 900 1RF Dose Instruction: INHALE 1 VIAL VIA NEBULIZER 4 TIMES A DAY Rx Instructions: INHALE 1 VIAL VIA NEBULIZER 4 TIMES A DAY acetylcysteine 200 mg/mL (20 %) solution See Rx Instructions .ROUTE .COMPLEX Qty: 1500 0RF Dose Instruction: INHALE 2MLS VIA NEBULIZER 4 TIMES A DAY Rx Instructions: INHALE 2MLS VIA NEBULIZER 4 TIMES A DAY furosemide 40 mg tablet 40 mg PO DAILY cholecalciferol (vitamin D3) [Vitamin D3] 5,000 unit Tablet 5,000 unit PO DAILY Discharge Orders: Discharge Order (Routine); Ordered 11/09/22 Ordered By: Sohan Alonso Admission Data Admit Date/Time: 10/29/22 11:17 Attending Provider: Sohan Alonso Admit Provider: Jake Garcia Primary Care Provider: Qasim Mccauley Other Providers: Johnnie Cortes ; Dante Landers Coding Diagnoses Hypercalcemia E83.52 Acute exacerbation of bronchiectasis J47.1 Pseudomonal pneumonia J15.1 On home oxygen therapy Z99.81 Chronic obstructive pulmonary disease J44.9 Insomnia G47.00 GERD (gastroesophageal reflux disease) K21.9 PAF (paroxysmal atrial fibrillation) I48.0 Seizure disorder G40.909 DVT prophylaxis Z29.9 Candidiasis of mouth and esophagus B37.81; B37.0 Osteoarthritis M19.90
[2022-11-09] MEDS: Cefepime 2,000 MG Extended Infusion IV SCH (13:12)
== END 2022-11-09 14:49 | DRG 178 ==
LOC: 3E 11:17 → SUATTDRO 11:17